=== PATIENT | female | born 1955 | race Caucasian/White ===

== ENCOUNTER → 2016-08-18 | Outpatient (CLI) | payer OTHER ==
[~2016-08-18] MED LIST: ASCA500 PO; CHOL100010 PO; MISCCAP80 PO; MULT-506 PO; ONDA4TAB10 SL
--- NOTE | 2016-08-18 12:45 | MAMMOGRAPHY REPORT ---
BILATERAL DIGITAL SCREENING MAMMOGRAM TOMOSYNTHESIS WITH CAD: 08/18/2016 CLINICAL HISTORY: Routine screening. Patient has no complaints. TECHNIQUE: Breast tomosynthesis in addition to standard 2D mammography was performed. Current study was also evaluated with a Computer Aided Detection (CAD) system. COMPARISON: Comparison is made to exams dated: 02/18/2016 mammogram, 02/18/2016 ultrasound, 08/19/2015 ul trasound, 08/19/2015 mammogram, 08/13/2015 mammogram, and 08/07/2014 mammogram - [facility] enter. BREAST COMPOSITION: There are scattered areas of fibroglandular density in both breasts. FINDINGS: No suspicious masses, calcifications, or areas of architectural distortion are noted in e ither breast. There has been no significant interval change compared to prior exams. Asymmetry in t he right superior posterior breast on the MLO view has the appearance of normal overlapping fibrogla ndular tissue on the tomosynthesis images. IMPRESSION: ACR BI-RADS CATEGORY 2: BENIGN There is no mammographic evidence of malignancy. A 1 year screening mammogram is recommended. The p atient will receive written notification of the results. Approximately 10% of breast cancers are not detected with mammography. A negative mammographic repor t should not delay biopsy if a clinically suggestive mass is present. Macy Arevalo M.D. /:08/18/2016 11:32:21 Counselor Dormitory: Kelly Haider [facility] letter sent: Normal 1/2 BI-RADS Code: ACR BI-RADS Category 2: Benign
== END | disposition home or self-care (01) ==
LOC: C.MAMM 09:16
PROVIDERS: ATTEND Obstetrics & Gynecology
DX: Z12.31 Encounter for screening mammogram for malignant neoplasm of breast (principal)

== ENCOUNTER → 2016-09-18 | Outpatient (CLI) | payer OTHER ==
[2016-09-18 10:01] LABS: BASO % 1.2 %; BASO ABS # 0.04 K/uL (0-0.2); COMPLETE YES; EOS % 1.7 %; LYMPH % 36.7 %; LYMPH ABS # 1.27 K/uL (1.2-3.4); MEAN CELL VOLUME 90.1 fL (80-100); MEAN CORPUSCULAR HEMOGLOBIN 31.3 pg (25-34); MEAN CORPUSCULAR HGB CONC 34.8 g/dl (32-36); MEAN PLATELET VOLUME 9.4 fL (7.4-10.4); MONO % 9.2 %; NEUT % 51.2 %; PLATELET COUNT 252 K/uL (130-400); RED BLOOD COUNT 4.44 M/uL (4.2-5.4); WHITE BLOOD COUNT 3.46 K/uL (4.8-10.8)
[2016-09-18 10:34] LABS: ALT/SGPT 30 U/L (12-78); BLOOD UREA NITROGEN 18 mg/dl (7-18); BUN/CREATININE RATIO 19.8 (10-20); CALCIUM 9.5 mg/dl (8.5-10.1); CARBON DIOXIDE 32 mmol/L (21-32); CHLORIDE 106 mmol/L (98-107); CHOLESTEROL 285 mg/dl (0-200); CREATININE 0.91 mg/dl (0.60-1.20); GLUCOSE 83 mg/dl (70-99); POTASSIUM 4.3 mmol/L (3.5-5.1); SODIUM 142 mmol/L (136-145)
[2016-09-18 10:36] LABS: ALB/GLOB RATIO 1.1 (0.9-2); ALKALINE PHOSPHATASE 81 U/L (45-117); AST/SGOT 21 U/L (15-37); CHOLESTEROL/HDL RATIO 3.2; HDL CHOLESTEROL 88 mg/dl; LDL CHOLESTEROL CALCULATED 172 mg/dl; TRIGLYCERIDES 126 mg/dl (0-150); VERY LOW DENSITY LIPOPROT CALC 25 mg/dl
== END | disposition home or self-care (01) ==
LOC: C.LAB 09:30
PROVIDERS: ATTEND Family Medicine
DX: Z13.0 Encounter for screening for diseases of the blood and blood-forming organs and certain disorders involving the immune mechanism (principal); G43.109 Migraine with aura, not intractable, without status migrainosus; E78.5 Hyperlipidemia, unspecified; Z11.59 Encounter for screening for other viral diseases

== ENCOUNTER → 2017-01-27 | Outpatient (CLI) | payer OTHER ==
[~2017-01-27] MED LIST changes: -ONDA4TAB10 SL
[2017-01-27 20:09] LABS: LYME DISEASE AB IGG NEG (NEG); LYME DISEASE AB IGM NEG (NEG)
== END | disposition home or self-care (01) ==
LOC: C.LAB 17:25
PROVIDERS: ATTEND Physician Assistant
DX: W57.XXXA Bitten or stung by nonvenomous insect and other nonvenomous arthropods, initial encounter (principal)

== ENCOUNTER → 2017-02-04 | Outpatient (CLI) | payer OTHER ==
--- NOTE | 2017-02-05 13:54 | DIAGNOSTIC IMAGING REPORT ---
MRI OF THE RIGHT KNEE WITHOUT CONTRAST CLINICAL HISTORY: Chronic right knee pain. COMPARISON STUDY: None. TECHNIQUE: Utilizing a 1.5 Zandra magnet and dedicated coil, multiplanar, multiecho imaging of the right knee was performed without intravenous or intraarticular contrast. FINDINGS: Alignment of the right knee is anatomic. Extensor mechanism is intact. There is no marrow edema or marrow replacement. A marker was placed on the skin at site of maximal pain which overlies the medial femoral condyle. There is no significant knee joint effusion. Note is made of a 1.3 cm T2 hypointense, T1 hypointense abnormality immediately superior to the posterior cruciate ligament and within the upper aspect of the intercondylar region. This is nonspecific. There is no meniscal tear. The cruciate and collateral ligaments are intact. There is minimal chondrosis within the medial femoral condyle. IMPRESSION: 1. 1.3 cm abnormality immediately superior to the posterior cruciate ligament within the intercondylar region which is likely intra-articular. This is indeterminate and could reflect a loose body or other intraarticular abnormality. 2. Intact cruciate and collateral ligaments. 3. Mild chondrosis of the medial femoral condyle. Electronically signed by: Christ Corona M.D. 02/05/2017 1:52 PM Dictated Date/Time: 02/04/2017 6:42 PM
== END | disposition home or self-care (01) ==
LOC: C.MRI 17:26
PROVIDERS: ATTEND Orthopaedic Surgery
DX: M25.561 Pain in right knee (principal)

== ENCOUNTER → 2017-03-30 | Outpatient (CLI) | payer OTHER ==
[2017-03-30 18:03] LABS: BASO % 0.6 %; BASO ABS # 0.04 K/uL (0-0.2); COMPLETE YES; EOS % 1.3 %; HEMATOCRIT 44.3 % (37-47); IG% 0.2 %; LYMPH % 21.6 %; LYMPH ABS # 1.33 K/uL (1.2-3.4); MEAN CELL VOLUME 95.7 fL (80-100); MEAN CORPUSCULAR HEMOGLOBIN 30.7 pg (25-34); MEAN CORPUSCULAR HGB CONC 32.1 g/dl (32-36); MEAN PLATELET VOLUME 9.9 fL (7.4-10.4); MONO % 7.5 %; NEUT % 68.8 %; PLATELET COUNT 281 K/uL (130-400); RED BLOOD COUNT 4.63 M/uL (4.2-5.4); WHITE BLOOD COUNT 6.16 K/uL (4.8-10.8)
[2017-03-30 18:16] LABS: ALT/SGPT 33 U/L (12-78); AST/SGOT 23 U/L (15-37); BLOOD UREA NITROGEN 15 mg/dl (7-18); BUN/CREATININE RATIO 16.9 (10-20); CALCIUM 10.3 mg/dl (8.5-10.1); CARBON DIOXIDE 32 mmol/L (21-32); CHLORIDE 104 mmol/L (98-107); CREATININE 0.89 mg/dl (0.60-1.20); GLUCOSE 88 mg/dl (70-99); POTASSIUM 4.7 mmol/L (3.5-5.1); SODIUM 138 mmol/L (136-145)
[2017-03-30 18:26] LABS: ALB/GLOB RATIO 1.2 (0.9-2); ALKALINE PHOSPHATASE 78 U/L (45-117)
[2017-03-30 18:29] LABS: URINE APPEARANCE CLEAR (CLEAR); URINE BILIRUBIN NEG (NEG); URINE COLOR YELLOW; URINE EPITHELIAL CELL AUTO 0-5 /lpf (0-5); URINE NITRITE NEG (NEG); URINE SPECIFIC GRAVITY 1.012 (1.000-1.030); UROBILINOGEN NEG (NEG); ZZUR CULT IF INDIC CLEAN CATCH NO
[2017-03-30 18:51] LABS: MANUAL MICROSCOPIC REQUIRED? NO; REVIEW REQ? NO
== END | disposition home or self-care (01) ==
LOC: C.LABBFT 11:37
PROVIDERS: ATTEND Internal Medicine
DX: R10.32 Left lower quadrant pain (principal); R00.2 Palpitations

== ENCOUNTER → 2017-04-05 | Outpatient (CLI) | payer OTHER ==
--- NOTE | 2017-04-20 08:48 | CODING QUERY MEDICAL NECESSITY ---
CQSUPPORTING DIAGNOSIS NEEDED A supporting diagnosis is required for the test/procedure performed on this patient in order for us to be reimbursed by the patient's insurance. Please provide a supporting diagnosis for the following test/procedure listed below next to the test name along with your signature. *If there is no additional diagnosis for this patient that would support the following test/procedure please document that below next to the test/procedure. Test(s)/Procedure(s) that require a supporting diagnosis: DOS 04/05/17 VITAMIN D TEST VITAMIN B12 TEST Provider Signature: Date: Thank you Dariela Barajas Health Information Management Once completed, please kindly fax back to [phone] For questions please call [phone]
== END | disposition home or self-care (01) ==
LOC: C.LAB1850 09:37
PROVIDERS: ATTEND Obstetrics & Gynecology
DX: R53.83 Other fatigue (principal)

== ENCOUNTER → 2017-06-07 | Outpatient (CLI) | payer OTHER ==
--- NOTE | 2017-06-07 15:22 | DIAGNOSTIC IMAGING REPORT ---
CHEST 2 VIEWS ROUTINE CLINICAL HISTORY: R05 [id number] cough COMPARISON STUDY: 09/16/2015 FINDINGS: The bones soft tissues and hemidiaphragms are normal. The cardiomediastinal silhouette is normal. The lungs are clear. The pulmonary vasculature is normal. IMPRESSION: Negative chest. The above report was generated using voice recognition software. It may contain grammatical, syntax or spelling errors. Electronically signed by: Ronal Perla M.D. 06/07/2017 3:21 PM Dictated Date/Time: 06/07/2017 3:21 PM
== END | disposition home or self-care (01) ==
LOC: C.RAD 14:58
PROVIDERS: ATTEND Internal Medicine
DX: R05 Cough (principal)

== ENCOUNTER → 2017-08-22 | Outpatient (CLI) | payer OTHER ==
--- NOTE | 2017-08-22 15:04 | MAMMOGRAPHY REPORT ---
BILATERAL DIGITAL SCREENING MAMMOGRAM TOMOSYNTHESIS WITH CAD: 08/22/2017 CLINICAL HISTORY: Routine screening examination. TECHNIQUE: Breast tomosynthesis in addition to standard 2D mammography was performed. Current study was also evaluated with a Computer Aided Detection (CAD) system. COMPARISON: Comparison is made to exams dated: 08/18/2016 mammogram, 02/18/2016 mammogram, 08/19/2015 mamm ogram, 08/13/2015 mammogram, 08/07/2014 mammogram, and 07/04/2013 mammogram - [facility] ter. BREAST COMPOSITION: There are scattered areas of fibroglandular density in both breasts. FINDINGS: The parenchymal pattern is unchanged. No developing mass, architectural distortion or clus ter of suspicious microcalcifications is seen in either breast. IMPRESSION: ACR BI-RADS CATEGORY 2: BENIGN There is no mammographic evidence of malignancy. A 1 year screening mammogram is recommended. The pa tient will receive written notification of the results. Approximately 10% of breast cancers are not detected with mammography. A negative mammographic report should not delay biopsy if a clinically suggestive mass is present. Prudence Pichardo M.D. ay/:08/22/2017 09:55:54 Punchboard Filling Machine Operator: Kelly HAMLIN(Serge)(Sarah), [facility] letter sent: Normal 1/2 BI-RADS Code: ACR BI-RADS Category 2: Benign
== END | disposition home or self-care (01) ==
LOC: C.MAMM 08:38
PROVIDERS: ATTEND Obstetrics & Gynecology
DX: Z12.31 Encounter for screening mammogram for malignant neoplasm of breast (principal)

== ENCOUNTER → 2017-10-21 | Outpatient (CLI) | payer OTHER ==
--- NOTE | 2017-10-21 08:52 | DIAGNOSTIC IMAGING REPORT ---
THYROID AND NECK ULTRASOUND CLINICAL HISTORY: Right-sided neck pain. COMPARISON STUDY: None. TECHNIQUE: Sonography of the thyroid gland and the right neck at site of maximal pain was performed. FINDINGS: Sonography of the right submandibular gland and adjacent soft tissues demonstrated no abnormality. The right thyroid lobe measures 4.9 x 1.3 x 1.4 cm and the left lobe measures 3.8 x 1.3 x 1.2 cm. The gland appears hypervascular and is mildly heterogeneous. There are no suspicious thyroid nodules. IMPRESSION: 1. No sonographic abnormality within the right neck at site of maximal pain. 2. Heterogeneous thyroid gland which appears hypervascular. This is nonspecific although could reflect thyroiditis. Electronically signed by: Christ Corona M.D. 10/21/2017 8:50 AM Dictated Date/Time: 10/21/2017 8:48 AM
== END | disposition home or self-care (01) ==
LOC: C.ULTR 08:05
PROVIDERS: ATTEND Nurse Practitioner
DX: M54.2 Cervicalgia (principal)

== ENCOUNTER → 2017-10-24 | Outpatient (CLI) | payer OTHER ==
[2017-10-24 16:52] LABS: ALBUMIN 3.9 gm/dl (3.4-5.0); ALT/SGPT 26 U/L (12-78); AST/SGOT 20 U/L (15-37); BLOOD UREA NITROGEN 17 mg/dl (7-18); CALCIUM 9.2 mg/dl (8.5-10.1); CARBON DIOXIDE 29 mmol/L (21-32); CREATININE 1.06 mg/dl (0.60-1.20); GLUCOSE 91 mg/dl (70-99); POTASSIUM 3.9 mmol/L (3.5-5.1); SODIUM 139 mmol/L (136-145)
[2017-10-24 17:02] LABS: ALKALINE PHOSPHATASE 73 U/L (45-117)
== END | disposition home or self-care (01) ==
LOC: C.LABBFT 14:50
PROVIDERS: ATTEND Nurse Practitioner
DX: Z00.00 Encounter for general adult medical examination without abnormal findings (principal); E78.5 Hyperlipidemia, unspecified; E07.9 Disorder of thyroid, unspecified

== ENCOUNTER → 2017-10-27 | Outpatient (CLI) | payer OTHER | END | disposition home or self-care (01) | LOC: C.PAPS 16:17 | PROVIDERS: ATTEND Obstetrics & Gynecology | DX: Z12.4 Encounter for screening for malignant neoplasm of cervix (principal) ==

== ENCOUNTER → 2017-11-22 | Outpatient (CLI) | payer OTHER ==
--- NOTE | 2017-11-22 17:37 | DIAGNOSTIC IMAGING REPORT ---
R VENOUS DOPP LOWER EXT UNILAT CLINICAL HISTORY: M79.604 Right leg painM79.89 Right leg swellingRight leg pain st TECHNIQUE: Venous Doppler COMPARISON STUDY: None FINDINGS: Normal study IMPRESSION: Normal study. No evidence for deep venous thrombosis. Mild soft tissue edema The above report was generated using voice recognition software. It may contain grammatical, syntax or spelling errors. Electronically signed by: Ronal Perla M.D. 11/22/2017 5:36 PM Dictated Date/Time: 11/22/2017 5:35 PM
== END | disposition home or self-care (01) ==
LOC: C.ULTR 17:02
PROVIDERS: ATTEND Internal Medicine
DX: M79.604 Pain in right leg (principal); M79.89 Other specified soft tissue disorders

== ENCOUNTER → 2017-11-25 | Outpatient (CLI) | payer OTHER | END | disposition home or self-care (01) | LOC: C.LAB1850 13:56 | PROVIDERS: ATTEND Physician Assistant | DX: E06.3 Autoimmune thyroiditis (principal) ==

== ENCOUNTER → 2017-12-01 | Outpatient (CLI) | payer OTHER ==
[2017-12-01 12:59] LABS: BASO % 1.5 %; BASO ABS # 0.06 K/uL (0-0.2); EOS % 0.8 %; EOS ABS # 0.03 K/uL (0-0.5); HEMATOCRIT 40.1 % (37-47); HEMOGLOBIN 13.7 g/dL (12.0-16.0); LYMPH % 28.5 %; LYMPH ABS # 1.11 K/uL (1.2-3.4); MEAN CELL VOLUME 92.2 fL (80-100); MEAN CORPUSCULAR HEMOGLOBIN 31.5 pg (25-34); MEAN CORPUSCULAR HGB CONC 34.2 g/dl (32-36); MEAN PLATELET VOLUME 9.6 fL (7.4-10.4); MONO % 8.2 %; MONO ABS # 0.32 K/uL (0.11-0.59); NEUT ABS # 2.37 K/uL (1.4-6.5); PLATELET COUNT 251 K/uL (130-400); RED CELL DISTRIBUTION WIDTH CV 12.8 % (11.5-14.5); RED CELL DISTRIBUTION WIDTH SD 43.7 fL (36.4-46.3); WHITE BLOOD COUNT 3.89 K/uL (4.8-10.8)
== END | disposition home or self-care (01) ==
LOC: C.LABBFT 08:54
PROVIDERS: ATTEND Internal Medicine
DX: Z00.00 Encounter for general adult medical examination without abnormal findings (principal)

== ENCOUNTER 2023-04-30 14:59 | Observation (INO) ==
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
--- NOTE | 2023-04-30 15:43 | XRay Report ---
XR chest 1V not portable CLINICAL HISTORY: Sepsis TECHNIQUE: Single frontal radiograph of the chest was obtained. Comparison: Comparison is made to chest radiograph 04/29/[address] chest 04/29/2023 FINDINGS: No lines and tubes are seen. The cardiomediastinal silhouette is normal. The lungs are clear. Minimal blunting of the left costophrenic angle. IMPRESSION: Minimal blunting of the left costophrenic angle compatible with scarring. ACT 112: Negative or not required by law. Electronically signed by: Bhaskar Davis M.D. 04/30/2023 3:41 PM
[2023-04-30] MEDS ORDERED: VANCOMYCIN CONSULT ACTIVE PRN ×2 (15:56→22:16)
[2023-04-30] MEDS ORDERED: VANCOMYCIN HCL 1,750 MG in SODIUM CHLORIDE 0.9% 500 ML IV ONE (15:56)
[2023-04-30] MEDS ORDERED: cefTRIAXone SODIUM 2,000 MG/50 ML BAG IV STA (15:59)
[2023-04-30] MEDS ORDERED: PANTOprazole 40 MG in SYRINGE 0 ML IV ONE (15:59)
[2023-04-30 16:22] LABS: Hematocrit (blood only) 37.7 % (37.0-47.0); Hemoglobin 12.9 g/dl (12.0-16.0); Mean Corpuscular Hemoglobin 31.6 pg (25.0-34.0); Mean Corpuscular Hgb Conc 34.2 g/dL (32.0-36.0); Mean Corpuscular Volume 92.4 fL (80.0-100.0); Mean Platelet Volume 9.8 fL (9.4-12.4); Platelet Count 241 K/uL (130-400); RDW Coefficient of Variation 12.3 % (11.5-14.5); RDW Standard Deviation 41.8 fL (36.4-46.3); Red Blood Count 4.08 M/uL (4.20-5.40); White Blood Count 11.89 K/ul (4.8-10.8)
[2023-04-30 16:40] LABS: Alanine Aminotransferase 23 U/L (7-52); Albumin Globulin Ratio 1.6 (0.9-2); Albumin Level 4.6 gm/dl (3.4-5.0); Alkaline Phosphatase 77 U/L (34-104); Anion Gap 8 (3-11); Aspartate Aminotransferase 19 U/L (13-39); BUN Creatinine Ratio 17.9 (10-20); Bilirubin,Total 1.1 mg/dl (0.2-1.0); Blood Urea Nitrogen 14 mg/dl (6-23); Carbon Dioxide 26 mmol/L (21-32); Chloride 104 mmol/L (98-107); Est GFR (African American) 91.2 ml/min; Est GFR (Non-African American) 78.7 ml/min; Globulin 2.8 gm/dl (2.5-4.0); Glucose 115 mg/dl (70-99(Fasting)); Magnesium 1.7 mg/dl (1.7-2.4); Potassium 3.7 mmol/L (3.5-5.1); Sodium 138 mmol/L (136-145); Total Protein 7.4 gm/dl (6.0-8.3)
[2023-04-30] MEDS ORDERED: ACETAMINOPHEN 1,000 MG/100 ML VIAL IV STA ×2 (16:40→23:36)
[2023-04-30] MEDS ORDERED: ONDANSETRON INJ 2 MG/ML 2 ML VIAL IV STA ×2 (16:40→19:50)
[2023-04-30 16:42] LABS: Basophils # (auto) 0.03 K/uL (0.00-0.20); Basophils % (auto) 0.3 %; Immature Granulocytes # (auto) 0.04 K/uL (0.01-0.20); Immature Granulocytes % (auto) 0.3 %; Lymphocytes # (auto) 0.44 K/uL (1.20-3.40); Lymphocytes % (auto) 3.7 %; Neutrophils # (auto) 10.78 K/uL (1.40-6.50); Neutrophils % (auto) 90.7 %; RBC Morphology Unremarkable
[2023-04-30 16:49] LABS: Troponin I High Sensitivity 10.2 pg/ml (0-14)
[2023-04-30 16:50] LABS: Partial Thromboplastin Time 27.1 Seconds (21.0-31.0); Prothrombin Time 10.8 Seconds (9.0-12.0)
--- NOTE | 2023-04-30 18:00 | History & Physical Report ---
Date of Service April 30, 2023 Assessment & Plan (1) Abscess: Plan: Breast abscess S/p right lumpectomy 04/08/2023. Surgical site C/C/I without evidence of infection at follow-up 04/19/2023 CT 04/29/2023 which showed a 3.1 x 2.5 and 7.6 x 2.6 fluid collection initially suspicious for seroma/liquefied hematomas; however in the setting of leukocytosis and fever is suspected to be abscess. Surgery consulted, recommended medical admission and IV antibiotics with surgical consultation No history of resistant organisms Patient continued on Rocephin/vancomycin. Leukocytosis, no signs of sepsis on admission Procalcitonin is negative Admitted to med/surg CRP ordered and trended GERD PPI daily History of AIVR/PVCs Last saw cardiology December 2022. Completed a Holter 10/2022 which showed 1 episodes of AIVR lasting 11 beats and 2 episodes of ectopy. Was recommended to continue walking and aerobic activities and was prescribed a as needed beta- jamee . DVT PPx: SCDs Diet; regular CODE: Full Dispo: M/S (2) Status post right breast lumpectomy: (3) LPRD (laryngopharyngeal reflux disease): (4) Ductal carcinoma in situ (DCIS) of right breast: History of Present Illness Primary Care Provider: Zuly Corona MD Harini is a 67-year-old female with a past medical history of GERD, DCIS of the right breast, s/p right breast lumpectomy 04/08/[address] Orellana who presents with fever, leukocytosis, and suspected breast abscess. She did have a CT 04/29/2023 which showed a 3.1 x 2.5 and 7.6 x 2.6 fluid collection initially suspicious for seroma/liquefied hematomas; however in the setting of leukocytosis and fever is suspected to be abscess. Last 4 days has had worseningswelling pain in the R breast and armpit. Last 24 horus swelling is much worse and is not red and tender around the stitches. No chills currently, but has chills last nigth with sweats and fever of 101- 102*F No sternal chest pain. Prio rpain improves slightly with ibuprofen. no shortness of breath no nausea/vomiting Has metoprolol for PVCs, but does not generally take it for symptoms as is not required and notes she is aware they are benign. Denies hx heart of lung disease Takes ppi for gerd which works well for her Medical History: Reviewed Medications: Reviewed Surgical History: Reviewed Family history: Reviewed Allergies: Reviewed Social History: No tobacco/etoh Code Status: FUll Code Allergies Allergy/AdvReac Type Severity Reaction Status Date / Time acetaminophen [From Percocet] Allergy Unknown light Verified 04/30/23 16:28 headed adhesive Allergy Unknown Redness of Verified 04/30/23 16:28 Skin Aminoglycosides Allergy Unknown Unknown Verified 04/30/23 16:28 bacitracin Allergy Unknown LOCALIZED Verified 04/30/23 16:28 SWELLING beclomethasone Allergy Unknown TONGUE Verified 04/30/23 16:28 SWELLING blue dye Allergy Unknown [place] Verified 04/30/23 16:28 Blue FCF - doesn't remember reaction erythrosine sodium Allergy Unknown pt not sure Verified 04/30/23 16:28 hyaluronate sodium, Allergy Unknown rash ? Verified 04/30/23 16:28 stabilized hyaluronic acid Allergy Unknown Rash Verified 04/30/23 16:28 [From Supartz] latex Allergy Unknown RASH, Verified 04/30/23 16:28 ITCHING neomycin Allergy Unknown LOCALIZED Verified 04/30/23 16:28 SWELLING Nitrate Analogues Allergy Unknown Unknown Verified 04/30/23 16:28 nitrofurantoin Allergy Unknown REDNESS Verified 04/30/23 16:28 AND ANAPHYLAXIS oxycodone Allergy Unknown UNKNOWN Verified 04/30/23 16:28 Penicillins Allergy Unknown LIPS Verified 04/30/23 16:28 SWELLING phenylpropanolamine Allergy Unknown Unknown Verified 04/30/23 16:28 polymyxin B Allergy Unknown LOCALIZED Verified 04/30/23 16:28 SWELLING povidone Allergy Unknown WELTS Verified 04/30/23 16:28 povidone-iodine Allergy Unknown welts Verified 04/30/23 16:28 [From Betadine] ranitidine Allergy Unknown pt not Verified 04/30/23 16:28 sure light headed ? not feel good? headache? Sulfa (Sulfonamide Allergy Unknown LIPS Verified 04/30/23 16:28 Antibiotics) SWELLING sulfamethoxazole Allergy Unknown LIPS Verified 04/30/23 16:28 SWELLING trimethoprim Allergy Unknown LIPS Verified 04/30/23 16:28 SWELLING yellow dye Allergy Unknown pt is not Verified 04/30/23 16:28 sure why this is listed, old allergy ? guaifenesin AdvReac Unknown "DOESN'T Verified 04/30/23 16:28 MAKE ME FEEL GOOD" hydrocortisone AdvReac Unknown topical Verified 04/30/23 16:28 caused skin infection phenylephrine AdvReac Unknown "DOESN'T Verified 04/30/23 16:28 MAKE ME FEEL GOOD" Home Medications Medication Instructions Recorded Confirmed Type ascorbic acid (vitamin C) 500 mg 500 mg PO QDD 08/11/18 04/30/23 History tablet (Vitamin C) ibuprofen 200 mg tablet (Advil) 600 mg PO UD PRN Pain 08/11/18 04/30/23 History lactobacillus combination no.4 3 3,000 mmu cells PO QDD 08/11/18 04/30/23 History billion cell capsule (Probiotic) ferrous sulfate 325 mg (65 mg 325 mg PO 3XWK 10/09/20 04/30/23 History iron) tablet cholecalciferol (vitamin D3) 50 50 mcg PO QDD 01/11/22 04/30/23 History mcg (2,000 unit) capsule estradiol 0.01% (0.1 mg/gram) 1 appful vaginal 2XWK #42.5 grams 04/26/22 04/30/23 Rx vaginal cream lorazepam 0.5 mg tablet 0.5 mg PO Q8H PRN anxiety #30 tabs 05/12/22 04/30/23 Rx cyclosporine 0.05 % eye drops in a 1 drp ophthalmic (eye) BID 03/09/23 04/30/23 History dropperette pantoprazole 40 mg tablet,delayed 40 mg PO QAM 03/31/23 04/30/23 History release clindamycin HCl 150 mg capsule 450 mg PO TID 7 days #63 caps 04/29/23 04/30/23 Rx hydrocodone 5 mg-acetaminophen 325 1 tab PO Q6H PRN pain #10 tabs 04/29/23 04/30/23 Rx mg tablet magnesium 250 mg tablet 0 mg PO DAILY 04/30/23 04/30/23 History Past Med/Surg History Medical History Acid reflux Anxiety APC (atrial premature contractions) Bilateral high frequency sensorineural hearing loss Chronic neck pain hx multiple whiplash Chronically dry eyes Dietary iron deficiency without anemia Eczema Family history of reaction to anesthesia son : periodic paralysis syndrome (hypokalemic) Una's thyroiditis Hiatal hernia History of blood clots superficial remote hx/ tx with abx only. History of COVID-02 February 2021 and Jul 2022. Hx of Clostridium difficile infection Hx of tear of meniscus of knee joint Hyperlipidemia Lichen simplex chronicus Migraine hx Osteoporosis Seborrheic keratosis Surgical History H/O colonoscopy H/O hand surgery BILAT > TRIGGER FINGERS History of cataract surgery both History of endometrial ablation History of esophagogastroduodenoscopy (EGD) S/P knee surgery RIGHT > SCOPE x2 Left x 18 Aug 2022 Status post right breast lumpectomy (04/08/23) Right Breast Lumpectomy with Localization using Wire Localization, Right [place] Lymph Node Biopsy(Right) - Naeem Orellana, [place] teeth extracted Family History Mother Breast cancer Cancer Father Hypertension Hearing loss Other No family history of allergies No family history of bleeding disorder Denies family history of Colon cancer Ovarian cancer Prostate cancer Heart disease Myocardial infarction Stroke Asthma Social History Smoking Status: Never smoker Second Hand Exposure: Yes (as a child); Do You Dip or Chew Tobacco: No; Hx Alcohol Use: Yes Alcohol type: wine Hx Substance Use: No Preferred Language: Latvian Communication Ability: Effective Highway Engineer Required: No Beliefs That Will Affect Care: None marital status: Current Living Situation: Spouse current occupational status: retired How many Children do You have: 3 Feels Safe at Home: Yes Dental Care, Regularly: Yes Physical Activity Frequency: 3-4 Times per Week Assistive Devices: Glasses Physical Exam Physical Exam: General: A&Ox3. NAD. Cooperative. HEENT: Atraumatic, normocephalic. Thorax: R lateral breast with surgical site incision with warmth, erythema, and tenderness. No discharge. Marked with surgical pen Pulm: CTAB A&P. -wheezes, -rales, -rhonchi. Symmetrical chest rise. No increased work of breathing. No respiratory distress. Cardiac: RRR, -mrg. Radial pulses intact and symmetrical. Abdominal: Nontender, nondistended, soft. BS present. Results & Data Results & Data Vital Signs (Past 12 Hours) Vital Signs Temp Pulse Resp BP Pulse Ox O2 Del Method 04/30/23 15:58 77 04/30/23 15:10 36.4 C L 84 16 136/67 98 Room Air PG Care Time/CCT Total # of Minutes Spent Total Time Spent with Patient: Total time spent is greater than 50% in coordination of care (as documented) at patient's floor/unit and/or counseling patient: Coding Level of Care Code 69853 INT INP/OBS CARE 2/55MIN Diagnoses Abscess L02.91 Status post right breast lumpectomy Z98.890 LPRD (laryngopharyngeal reflux disease) K21.9 Ductal carcinoma in situ (DCIS) of right breast D05.11
[2023-04-30] MEDS ORDERED: LORazepam 0.5 MG TAB PO PRN (22:16)
[2023-04-30 22:33] LABS: Appearance Urine Cloudy (Clear); Bacteria Urine Automated Negative (Negative); Bilirubin Urine Negative (Negative); Blood Urine Negative (Negative); Color Urine Yellow; Epithelial Cell Urine Auto >30 /lpf (0-5); Glucose Urine UA Negative (Negative); Ketones Urine 3+ (Negative); Leukocyte Esterase Urine Negative (Negative); Nitrite Urine Negative (Negative); Protein Urine 1+ (Negative); RBC Urine Automated 0-4 /hpf (0-4); Urobilinogen Urine Negative (Negative)
[2023-04-30] MEDS ORDERED: ONDANSETRON INJ 2 MG/ML 2 ML VIAL IV PRN (22:57)
[2023-04-30] MEDS ORDERED: ACETAMINOPHEN 325 MG TAB PO PRN (22:57)
[2023-04-30] MEDS: NSS + 20MEQ KCL 20 MEQ/1,000 ML BAG IV SCH (23:21)
[2023-04-30] MEDS ORDERED: Patient's HEIGHT &/or WEIGHT Needed STA (23:34)
[2023-05-01] MEDS ORDERED: VANCOMYCIN HCL 1,000 MG in SODIUM CHLORIDE 0.9% 500 ML IV SCH (03:00)
[2023-05-01] MEDS ORDERED: VANCOMYCIN HCL 750 MG in SODIUM CHLORIDE 0.9% 250 ML IV SCH (04:00)
[2023-05-01] MEDS ORDERED: HYDROmorphone INJ 0.5 MG/0.5 ML SYR IV STA (05:06)
[2023-05-01] MEDS ORDERED: PROCHLORPERAZINE 5 MG in SYRINGE 4 ML IV PRN (05:43)
[2023-05-01 06:01] LABS: Basophils # (auto) 0.05 K/uL (0.00-0.20); Basophils % (auto) 0.5 %; Eosinophils # (auto) 0.04 K/uL (0.00-0.50); Eosinophils % (auto) 0.4 %; Hematocrit (blood only) 31.7 % (37.0-47.0); Hemoglobin 10.8 g/dl (12.0-16.0); Immature Granulocytes # (auto) 0.02 K/uL (0.01-0.20); Immature Granulocytes % (auto) 0.2 %; Lymphocytes # (auto) 0.75 K/uL (1.20-3.40); Lymphocytes % (auto) 7.7 %; Mean Corpuscular Hemoglobin 31.6 pg (25.0-34.0); Mean Corpuscular Hgb Conc 34.1 g/dL (32.0-36.0); Mean Corpuscular Volume 92.7 fL (80.0-100.0); Mean Platelet Volume 9.8 fL (9.4-12.4); Monocytes # (auto) 0.79 K/uL (0.11-0.59); Monocytes % (auto) 8.1 %; Neutrophils # (auto) 8.08 K/uL (1.40-6.50); Neutrophils % (auto) 83.1 %; Platelet Count 204 K/uL (130-400); RDW Coefficient of Variation 12.4 % (11.5-14.5); Red Blood Count 3.42 M/uL (4.20-5.40); White Blood Count 9.73 K/ul (4.8-10.8)
[2023-05-01 06:05] LABS: BUN Creatinine Ratio 17.6 (10-20); C Reactive Protein 4.17 mg/dl (0-0.5); Calcium 8.8 mg/dl (8.6-10.3); Creatinine Clr Calc Pharmacy 76.1 ml/min; Est GFR (African American) 104.9 ml/min; Est GFR (Non-African American) 90.5 ml/min; Potassium 3.7 mmol/L (3.5-5.1)
[2023-05-01] MEDS: MAGNESIUM OXIDE 400 MG TAB PO SCH (08:27)
[2023-05-01] MEDS: PANTOprazole 40 MG TAB PO SCH (08:28)
[2023-05-01] MEDS: NSS + 20MEQ KCL 20 MEQ/1,000 ML BAG IV SCH ×2 (08:28→16:17)
[2023-05-01] MEDS ORDERED: CLINDAMYCIN HCL 150 MG CAP PO SCH (09:00)
--- NOTE | 2023-05-01 09:57 | Surgery Consultation ---
Date of Consultation May 01, 2023 Assessment & Plan (1) Seroma of breast: no fluctuance or drainable abscess Present on Admission?: Yes (2) Cellulitis: c0on't IV abx improving and feels better this AM AF WBC normal this AM Present on Admission?: Yes History of Present Illness Attending Physician: Kervin Diane MD History of Present Illness This is a 67-year-old female with DCIS of the right breast, s/p right breast lumpectomy 04/08/[address] Orellana who presents with fever, leukocytosis and possible breast abscess. She did have a CT 04/29/2023 which showed a 3.1 x 2.5 and 7.6 x 2.6 fluid collection initially suspicious for seroma/liquefied hematomas. She has had 4 days of swelling pain in the R breast and armpit. No chills currently, but a subjective fever of 101-102*F Allergies Allergy/AdvReac Type Severity Reaction Status Date / Time acetaminophen [From Percocet] Allergy Unknown light Verified 04/30/23 16:28 headed adhesive Allergy Unknown Redness of Verified 04/30/23 16:28 Skin Aminoglycosides Allergy Unknown Unknown Verified 04/30/23 16:28 bacitracin Allergy Unknown LOCALIZED Verified 04/30/23 16:28 SWELLING beclomethasone Allergy Unknown TONGUE Verified 04/30/23 16:28 SWELLING blue dye Allergy Unknown [place] Verified 04/30/23 16:28 Blue FCF - doesn't remember reaction erythrosine sodium Allergy Unknown pt not sure Verified 04/30/23 16:28 hyaluronate sodium, Allergy Unknown rash ? Verified 04/30/23 16:28 stabilized hyaluronic acid Allergy Unknown Rash Verified 04/30/23 16:28 [From Supartz] latex Allergy Unknown RASH, Verified 04/30/23 16:28 ITCHING neomycin Allergy Unknown LOCALIZED Verified 04/30/23 16:28 SWELLING Nitrate Analogues Allergy Unknown Unknown Verified 04/30/23 16:28 nitrofurantoin Allergy Unknown REDNESS Verified 04/30/23 16:28 AND ANAPHYLAXIS oxycodone Allergy Unknown UNKNOWN Verified 04/30/23 16:28 Penicillins Allergy Unknown LIPS Verified 04/30/23 16:28 SWELLING phenylpropanolamine Allergy Unknown Unknown Verified 04/30/23 16:28 polymyxin B Allergy Unknown LOCALIZED Verified 04/30/23 16:28 SWELLING povidone Allergy Unknown WELTS Verified 04/30/23 16:28 povidone-iodine Allergy Unknown welts Verified 04/30/23 16:28 [From Betadine] ranitidine Allergy Unknown pt not Verified 04/30/23 16:28 sure light headed ? not feel good? headache? Sulfa (Sulfonamide Allergy Unknown LIPS Verified 04/30/23 16:28 Antibiotics) SWELLING sulfamethoxazole Allergy Unknown LIPS Verified 04/30/23 16:28 SWELLING trimethoprim Allergy Unknown LIPS Verified 04/30/23 16:28 SWELLING yellow dye Allergy Unknown pt is not Verified 04/30/23 16:28 sure why this is listed, old allergy ? guaifenesin AdvReac Unknown "DOESN'T Verified 04/30/23 16:28 MAKE ME FEEL GOOD" hydrocortisone AdvReac Unknown topical Verified 04/30/23 16:28 caused skin infection phenylephrine AdvReac Unknown "DOESN'T Verified 04/30/23 16:28 MAKE ME FEEL GOOD" Home Medications Medication Instructions Recorded Confirmed Type ascorbic acid (vitamin C) 500 mg 500 mg PO QDD 08/11/18 04/30/23 History tablet (Vitamin C) ibuprofen 200 mg tablet (Advil) 600 mg PO UD PRN Pain 08/11/18 04/30/23 History lactobacillus combination no.4 3 3,000 mmu cells PO QDD 08/11/18 04/30/23 History billion cell capsule (Probiotic) ferrous sulfate 325 mg (65 mg 325 mg PO 3XWK 10/09/20 04/30/23 History iron) tablet cholecalciferol (vitamin D3) 50 50 mcg PO QDD 01/11/22 04/30/23 History mcg (2,000 unit) capsule estradiol 0.01% (0.1 mg/gram) 1 appful vaginal 2XWK #42.5 grams 04/26/22 04/30/23 Rx vaginal cream lorazepam 0.5 mg tablet 0.5 mg PO Q8H PRN anxiety #30 tabs 05/12/22 04/30/23 Rx cyclosporine 0.05 % eye drops in a 1 drp ophthalmic (eye) BID 03/09/23 04/30/23 History dropperette pantoprazole 40 mg tablet,delayed 40 mg PO QAM 03/31/23 04/30/23 History release clindamycin HCl 150 mg capsule 450 mg PO TID 7 days #63 caps 04/29/23 04/30/23 Rx hydrocodone 5 mg-acetaminophen 325 1 tab PO Q6H PRN pain #10 tabs 04/29/23 04/30/23 Rx mg tablet magnesium 250 mg tablet 0 mg PO DAILY 04/30/23 04/30/23 History Patient History Medical History Acid reflux Anxiety APC (atrial premature contractions) Bilateral high frequency sensorineural hearing loss Chronic neck pain hx multiple whiplash Chronically dry eyes Dietary iron deficiency without anemia Eczema Family history of reaction to anesthesia son : periodic paralysis syndrome (hypokalemic) Una's thyroiditis Hiatal hernia History of blood clots superficial remote hx/ tx with abx only. History of COVID-02 February 2021 and Jul 2022. Hx of Clostridium difficile infection Hx of tear of meniscus of knee joint Hyperlipidemia Lichen simplex chronicus Migraine hx Osteoporosis Seborrheic keratosis Surgical History H/O colonoscopy H/O hand surgery BILAT > TRIGGER FINGERS History of cataract surgery both History of endometrial ablation History of esophagogastroduodenoscopy (EGD) S/P knee surgery RIGHT > SCOPE x2 Left x 18 Aug 2022 Status post right breast lumpectomy (04/08/23) Right Breast Lumpectomy with Localization using Wire Localization, Right [place] Lymph Node Biopsy(Right) - Naeem Orellana, [place] teeth extracted Family History Mother Breast cancer Cancer Father Hypertension Hearing loss Other No family history of allergies No family history of bleeding disorder Denies family history of Colon cancer Ovarian cancer Prostate cancer Heart disease Myocardial infarction Stroke Asthma Social History Smoking Status: Never smoker Second Hand Exposure: Yes (as a child); Do You Dip or Chew Tobacco: No; Hx Alcohol Use: No Hx Substance Use: No Preferred Language: Georgian Communication Ability: Effective Plug Stitcher Required: No Beliefs That Will Affect Care: None marital status: Current Living Situation: Spouse current occupational status: retired How many Children do You have: 3 Other Information That Helps Us Care for You: No Feels Safe at Home: Yes Safety Concerns: Feels Safe At This Time Dental Care, Regularly: Yes Physical Activity Frequency: 3-4 Times per Week Assistive Devices: None Review of Systems Constitutional: + fever; no chills and no anorexia Eyes: no problem reported Ear, Nose, Mouth, Throat: no problem reported Respiratory: no cough and no dyspnea Cardiovascular: no chest pain Gastrointestinal: no abdominal pain Genitourinary: no dysuria Musculoskeletal: no back pain, no neck pain and no joint pain Integumentary: + rash and + erythema Neurologic: no localized weakness and no generalized weakness Psychiatric: no behavioral changes Endocrine: no fatigue Hematologic / Lymphatic: no easy bleeding and no easy bruising Physical Exam Constitutional: WD/WN, vitals as above Eyes: PERRL, conjunctivae normal, anicteric sclerae ENMT: external ear and nose normal, oropharynx normal Neck: trachea midline Respiratory: normal respiratory effort, lungs clear to auscultation Chest (Breasts): Breast: + breast tenderness Additional Comments: some mild erythema; no fluctuance Gastrointestinal (Abdomen): normal bowel sounds, soft, nontender, no hepatosplenomegaly Musculoskeletal: Head/Neck/Chest: normocephalic and head atraumatic Skin: no rashes, warm and dry Results & Data Vital Signs (Past 12 Hours) Vital Signs Temp Pulse Resp BP Pulse Ox O2 Del Method 05/01/23 06:34 36.4 C L 72 16 114/68 96 Room Air 04/30/23 23:15 Room Air 04/30/23 23:05 36.8 C 81 16 145/78 H 98 Room Air Diagnostic Findings CT SCAN OF THE CHEST WITH IV CONTRAST CLINICAL HISTORY: Right sided chest pain and swelling. Recent lumpectomy with lymph node dissection. COMPARISON STUDY: Chest x-ray dated 04/29/2023. TECHNIQUE: Following the IV administration of 93 cc of Optiray 320, CT scan of the thorax was performed from the thoracic inlet to the upper abdomen. Images are reviewed in the axial, sagittal, and coronal planes. IV contrast was administered without complication. A dose lowering technique was utilized adhering to the principles of ALARA. CT DOSE: 320.11 mGy.cm FINDINGS: Thyroid: Imaged portions of the thyroid gland are normal in size and attenuation. Thoracic aorta: The thoracic aorta is normal in caliber and demonstrates standard 3-vessel arch anatomy. No dissection is seen. Pulmonary vasculature: The pulmonary trunk is normal in caliber. There are no filling defects identified in the central pulmonary vessels to indicate pulmonary embolus. Note that this examination was not protocoled for evaluation of the pulmonary arteries. Heart: The heart is mildly enlarged and without pericardial effusion. Lungs and pleural spaces: There are small pleural effusions, right larger than left with dependent atelectasis. The lungs are otherwise clear. The trachea and central airways are patent. Mediastinum: There is no mediastinal lymphadenopathy. [place]: Clear. Axillae: There is no axillary lymphadenopathy. Upper abdomen: A 1.8 cm cyst is seen in the upper pole of left kidney. Partially visualized upper abdominal viscera is otherwise within normal limits. Skeletal structures: The skeletal structures are osteopenic. No lytic or blastic bony lesions are seen. Soft tissues: A small simple appearing fluid collection in the right axilla on image #73 measures 3.1 x 2.5 cm. A similar-appearing fluid collection is seen in the right breast on image #17. This measures 7.6 x 2.6 cm. Mild body wall edema seen on the right. IMPRESSION: 1. There is mild body wall edema on the right with simple appearing fluid collections in the right breast and right axilla as above. These likely represent seromas/liquefied hematomas given the history of recent surgery. The sterility of this fluid cannot be assessed by imaging and clinical correlation will be required. 2. Cardiomegaly with small pleural effusions. 3. No airspace consolidation is seen typical for pneumonia. 4. Additional findings as above.
--- NOTE | 2023-05-01 13:50 | Pharmacy Report ---
Pharmacy PK ABX Note - Date of Service May 01, 2023 - Assessment and Plan Assessment 67 year old F receiving CEFTRIAXONE/VANCOMYCIN for treatment of breast abscess. Pertinent microbiologic data includes: blood cultures pending. General surgery consulted Plan Vancomycin * Loading dose: 1750 mg IV x 1 * Maintenance dose: 1000 mg IV every 12 hours * Regimen is predicted to achieve target AUC/JAMEL of 400-600 mg/L.hr * Random level ordered for 05/03 @ 1000 Pharmacy will continue to follow and will adjust dose/frequency as necessary. Thank you. Pharmacy has transitioned to AUC monitoring for vancomycin. AUC/JAMEL is the preferred PK/PD target and is associated with decreased risk of nephrotoxicity compared to traditional trough targets.
[2023-05-01] MEDS ORDERED: HYDROCODONE/ACETAMOPHEN 5/325MG TAB PO PRN (15:50)
[2023-05-01] MEDS: ACETAMINOPHEN 325 MG TAB PO SCH ×2 (15:56→22:36)
[2023-05-01] MEDS ORDERED: POLYETHYLENE (MIRALAX) 17 GM PACK PO PRN (16:06)
--- NOTE | 2023-05-01 16:09 | Hospitalist Progress Note ---
Date of Service May 01, 2023 Assessment & Plan (1) Abscess of breast, right: Plan: modest clinical improvement overnight with IV rocephin + IV vancomycin WBC improved nausea is better erythema on R breast is decreased still with considerable pain over the inner aspect of right medial upper arm - suspect compression of axillary structures from the 2 fluid collections causing local mass effect & pain? try toradol 15mg IV q6h prn schedule tylenol 650mg TID norco 5's q4h prn appreciate gen surg consultation & assistance (2) Status post right breast lumpectomy: Plan: 04/08/23 - Right Breast Lumpectomy with Localization usingWire Localization and Right [place] Lymph Node Biopsy - Dr Orellana (3) Ductal carcinoma in situ (DCIS) of right breast: Plan: on R breast Bx 03/02/23 s/p right breast lumpectomy 04/08/23 all lymph nodes from R axillary region were negative for hayden spread of cancer (4) Acid reflux: Plan: cont PPI (5) Hx of Clostridium difficile infection: Plan: add probiotics yogurt 1-2x's/day (6) DVT prophylaxis: Plan: add heparin 5000 TID in light of recent surgery, etc Plan ?gallop on cardiac exam - re-examine tomorrow; if still present then echo no evidence of CHF, however, on physical exam family updated at bedside Admission and Anticipated Discharge Date Admission Date: April 30, 2023 Subjective patient with less nausea today no emesis able to tolerate liquids although her intake is low main complaint is that of right axillary pain extending onto the proximal right medial arm very sensitive to touch this area is more painful than the breast itself had c diff about 5 years ago asks for probiotics no BM in 2 days, however had fever at home - none since admission , son at bedside during the visit pt reports she had L meniscal knee surgery a few months ago Review of Systems Review of Systems: gen - no further fevers; eating fair; liquid intake fair at best cv - no central chest pain pulm - no dyspnea GI - no pain Physical Exam Physical Exam: gen - NAD, nontoxic, pleasant mouth - MMM neck - prominent carotid pulsation but no JVD heart - either split s1 or s4/s1 (gallop), s2 normal; RRR, no murmur lungs - modestly decreased BS bases otherwise CTA b/l; no rales abd - soft NT ND BS+ ext - no edema, pulses 2+ b/l chest - chaperoned by nursing - demarkation lines are present; these were placed on R breast by ER provider; mild erythema has retreated from the demarkation lines; steri strips present right upper outer quadrant; no drainage. steri- strips present over lymph node dissection site in the axillae; again no drainage. there is no palpable cord, swelling, or redness over the area of pain in the upper medial arm. musculo - left lower leg is larger than right leg Results & Data Results & Data Vital Signs (Past 12 Hours) Vital Signs Temp Pulse Resp BP Pulse Ox O2 Del Method 05/01/23 15:16 36.9 C 62 16 122/71 96 Room Air 05/01/23 06:34 36.4 C L 72 16 114/68 96 Room Air Laboratory Results Laboratory Results - last 24 hr 04/30/23 04/30/23 04/30/23 15:52 15:52 15:52 WBC 11.89 H RBC 4.08 L Hgb 12.9 Hct 37.7 MCV 92.4 MCH 31.6 MCHC 34.2 RDW Std Deviation 41.8 RDW Coeff of [place] 12.3 Plt Count 241 MPV 9.8 Immature Gran % (Auto) 0.3 Neut % (Auto) 90.7 Lymph % (Auto) 3.7 [place] % (Auto) 5.0 Eos % (Auto) 0.0 Baso % (Auto) 0.3 Neut # (Auto) 10.78 H Lymph # (Auto) 0.44 L [place] # (Auto) 0.60 H Eos # (Auto) 0.00 Baso # (Auto) 0.03 Immature Gran # (Auto) 0.04 RBC Morphology Unremarkable PT 10.8 INR 1.0 APTT 27.1 PTT Ratio 1.0 Sodium 138 Potassium 3.7 Chloride 104 Carbon Dioxide 26 Anion Gap 8 BUN 14 Creatinine 0.78 Est Cr Clr Drug Dosing Not Reportable Est GFR ( Amer) 91.2 Est GFR (Non-Af Amer) 78.7 BUN/Creatinine Ratio 17.9 Glucose 115 H Calcium 10.0 Magnesium 1.7 Total Bilirubin 1.1 H D AST 19 ALT 23 Alkaline Phosphatase 77 Troponin I High Sens 10.2 C-Reactive Protein 3.80 H Total Protein 7.4 Albumin 4.6 Globulin 2.8 Albumin/Globulin Ratio 1.6 Procalcitonin Urine Color Urine Appearance Urine pH Ur Specific [place] Urine Protein Urine Glucose (UA) Urine Ketones Urine Blood Urine Nitrite Urine Bilirubin Urine Urobilinogen Ur Leukocyte Esterase Urine WBC (Auto) Urine RBC (Auto) U Hyaline Cast (Auto) U Epithel Cells (Auto) Urine Bacteria (Auto) 04/30/23 04/30/23 05/01/23 15:52 22:20 05:26 WBC 9.73 RBC 3.42 L Hgb 10.8 L Hct 31.7 L MCV 92.7 MCH 31.6 MCHC 34.1 RDW Std Deviation 42.0 RDW Coeff of [place] 12.4 Plt Count 204 MPV 9.8 Immature Gran % (Auto) 0.2 Neut % (Auto) 83.1 Lymph % (Auto) 7.7 [place] % (Auto) 8.1 Eos % (Auto) 0.4 Baso % (Auto) 0.5 Neut # (Auto) 8.08 H Lymph # (Auto) 0.75 L [place] # (Auto) 0.79 H Eos # (Auto) 0.04 Baso # (Auto) 0.05 Immature Gran # (Auto) 0.02 RBC Morphology PT INR APTT PTT Ratio Sodium Potassium Chloride Carbon Dioxide Anion Gap BUN Creatinine Est Cr Clr Drug Dosing Est GFR ( Amer) Est GFR (Non-Af Amer) BUN/Creatinine Ratio Glucose Calcium Magnesium Total Bilirubin AST ALT Alkaline Phosphatase Troponin I High Sens C-Reactive Protein Total Protein Albumin Globulin Albumin/Globulin Ratio Procalcitonin < 0.05 Urine Color Yellow Urine Appearance Cloudy A Urine pH 6.0 Ur Specific [place] 1.030 Urine Protein 1+ H Urine Glucose (UA) Negative Urine Ketones 3+ H Urine Blood Negative Urine Nitrite Negative Urine Bilirubin Negative Urine Urobilinogen Negative Ur Leukocyte Esterase Negative Urine WBC (Auto) 1-5 Urine RBC (Auto) 0-4 U Hyaline Cast (Auto) 1-5 U Epithel Cells (Auto) >30 H Urine Bacteria (Auto) Negative 05/01/23 05:26 WBC RBC Hgb Hct MCV MCH MCHC RDW Std Deviation RDW Coeff of [place] Plt Count MPV Immature Gran % (Auto) Neut % (Auto) Lymph % (Auto) [place] % (Auto) Eos % (Auto) Baso % (Auto) Neut # (Auto) Lymph # (Auto) [place] # (Auto) Eos # (Auto) Baso # (Auto) Immature Gran # (Auto) RBC Morphology PT INR APTT PTT Ratio Sodium 140 Potassium 3.7 Chloride 109 H Carbon Dioxide 24 Anion Gap 7 BUN 12 Creatinine 0.68 Est Cr Clr Drug Dosing 76.1 Est GFR ( Amer) 104.9 Est GFR (Non-Af Amer) 90.5 BUN/Creatinine Ratio 17.6 Glucose 89 Calcium 8.8 Magnesium Total Bilirubin AST ALT Alkaline Phosphatase Troponin I High Sens C-Reactive Protein 4.17 H Total Protein Albumin Globulin Albumin/Globulin Ratio Procalcitonin Urine Color Urine Appearance Urine pH Ur Specific [place] Urine Protein Urine Glucose (UA) Urine Ketones Urine Blood Urine Nitrite Urine Bilirubin Urine Urobilinogen Ur Leukocyte Esterase Urine WBC (Auto) Urine RBC (Auto) U Hyaline Cast (Auto) U Epithel Cells (Auto) Urine Bacteria (Auto) Diagnostic Findings blood cx's negative to date PG Care Time/CCT Total # of Minutes Spent Total Time Spent with Patient: Total time spent is greater than 50% in coordination of care (as documented) at patient's floor/unit and/or counseling patient: Coding Level of Care Code 47342 SUB INP/OBS CARE 2/35MIN Diagnoses Abscess of breast, right N61.1 Status post right breast lumpectomy Z98.890 Ductal carcinoma in situ (DCIS) of right breast D05.11 Acid reflux K21.9 Hx of Clostridium difficile infection Z86.19 DVT prophylaxis Z29.9
[2023-05-01] MEDS: VANCOMYCIN HCL 1,000 MG in SODIUM CHLORIDE 0.9% 250 ML IV SCH (16:18)
[2023-05-01] MEDS ORDERED: ADVANCED PROBIOTIC 1250 MG CAPSULE PO SCH (16:30)
[2023-05-01] MEDS: SACCHAROMYCES BOULARDII 250 MG CAP PO SCH (17:09)
[2023-05-01] MEDS: ASCORBIC ACID 500 MG TAB PO SCH (17:09)
[2023-05-01] MEDS: cefTRIAXone SODIUM 2,000 MG in DEXTROSE 5 % MINI-B 50 ML IV SCH (17:50)
[2023-05-01] MEDS ORDERED: NON-FORMULARY PATIENT'S OWN MED SCH (21:00)
[2023-05-01] MEDS: cycloSPORINE (RESTASIS) OP SCH (21:36)
[2023-05-01] MEDS: HEPARIN SOD 5,000 UNIT/0.5 ML VIAL SQ SCH (21:37)
[2023-05-01] MEDS: KETOROLAC TROMETHAMINE 15 MG/ML VIAL IV PRN (22:35)
[2023-05-02] MEDS: VANCOMYCIN HCL 1,000 MG in SODIUM CHLORIDE 0.9% 250 ML IV SCH ×2 (05:39→16:16)
[2023-05-02] MEDS: NSS + 20MEQ KCL 20 MEQ/1,000 ML BAG IV SCH (05:40)
[2023-05-02] MEDS: KETOROLAC TROMETHAMINE 15 MG/ML VIAL IV PRN ×2 (05:46→14:30)
[2023-05-02] MEDS: HEPARIN SOD 5,000 UNIT/0.5 ML VIAL SQ SCH ×3 (05:46→21:44)
[2023-05-02 06:27] LABS: Basophils # (auto) 0.05 K/uL (0.00-0.20); Basophils % (auto) 0.9 %; Eosinophils # (auto) 0.13 K/uL (0.00-0.50); Eosinophils % (auto) 2.3 %; Hematocrit (blood only) 30.5 % (37.0-47.0); Hemoglobin 10.1 g/dl (12.0-16.0); Immature Granulocytes # (auto) 0.02 K/uL (0.01-0.20); Immature Granulocytes % (auto) 0.4 %; Lymphocytes # (auto) 1.13 K/uL (1.20-3.40); Lymphocytes % (auto) 20.1 %; Mean Corpuscular Hemoglobin 31.3 pg (25.0-34.0); Mean Corpuscular Hgb Conc 33.1 g/dL (32.0-36.0); Mean Corpuscular Volume 94.4 fL (80.0-100.0); Mean Platelet Volume 10.1 fL (9.4-12.4); Monocytes # (auto) 0.47 K/uL (0.11-0.59); Monocytes % (auto) 8.4 %; Neutrophils # (auto) 3.82 K/uL (1.40-6.50); Neutrophils % (auto) 67.9 %; Platelet Count 182 K/uL (130-400); RDW Coefficient of Variation 12.4 % (11.5-14.5); RDW Standard Deviation 43.4 fL (36.4-46.3); Red Blood Count 3.23 M/uL (4.20-5.40); White Blood Count 5.62 K/ul (4.8-10.8)
[2023-05-02 06:41] LABS: BUN Creatinine Ratio 21.4 (10-20); Calcium 8.6 mg/dl (8.6-10.3); Creatinine Clr Calc Pharmacy 73.9 ml/min; Est GFR (African American) 103.9 ml/min; Est GFR (Non-African American) 89.7 ml/min; Potassium 4.2 mmol/L (3.5-5.1)
[2023-05-02] MEDS: SACCHAROMYCES BOULARDII 250 MG CAP PO SCH (07:32)
[2023-05-02] MEDS: PANTOprazole 40 MG TAB PO SCH (07:35)
[2023-05-02] MEDS: MAGNESIUM OXIDE 400 MG TAB PO SCH (09:00)
[2023-05-02] MEDS: SENNA 8.6 MG TAB PO SCH (09:00)
[2023-05-02] MEDS: ACETAMINOPHEN 325 MG TAB PO SCH ×3 (09:01→21:43)
[2023-05-02] MEDS: cycloSPORINE (RESTASIS) OP SCH ×2 (09:01→21:44)
--- NOTE | 2023-05-02 10:28 | Surgery Progress Note ---
Date of Service May 02, 2023 Assessment & Plan (1) Abscess of breast, right: Plan: Patient is post operative right breast lumpectomy sentinel node BX on 04/08/[address] Orellana. Patient reports she was seen in the ER Last Tuesday for post operative pain that began to worsen, was given prescription for pain medication and PO anabiotics and was d/c home. While at home Tuesday the pain began to worsen and patient developed N/V and fever. She returned to the ER and was admitted. She has been getting IV antbx since Tuesday night, and has not had any fevers while in house. No drainage from surgical site, reports warmth, redness, and pain that extends to her underarm and right shoulder area. Right post operative breast lumpectomy / sentinel node: erythema, warmth, extending laterally, areas still have remaining steri strips, erythema does not extend past current [place] markings. VSS , WBC 5.6 Patient can receive her next dose of IV antbx D/c on PO antibiotic and f/u in office Tuesday with Dr. Orellana Admission and Anticipated Discharge Date Admission Date: April 30, 2023 Subjective Patient reports she was seen in the ER Last Tuesday for post operative pain that began to worsen, was given prescription for pain medication and PO anabiotics and was d/c home. While at home Tuesday the pain begain to worsen and patient developed N/V and fever. She returned to the ER and was admitted. She has been getting IV antbx since Tuesday night, and has not had any fevers while in house. No drainage from surgical site, reports warmth, redness, and pain that extends to her underarm and shoulder area. Review of Systems Constitutional: no fever, no chills and no sweats since admission Integumentary: + breast skin changes Physical Exam Physical Exam: awake alert pleasant Constitutional: cooperative and comfortable; no acute distress Respiratory: normal respiratory effort and able to speak in complete sentences; no respiratory distress Cardiovascular: Rate/Rhythm: regular rate Chest (Breasts): Additional Comments: Right post operative breast lumpectomy / sentinel node: erythema, warmth, extend ing laterally, areas still have remaining steri strips Results & Data Vital Signs (Past 12 Hours) Vital Signs Temp Pulse Resp BP Pulse Ox O2 Del Method 05/02/23 07:12 97.9 F 55 L 16 128/74 94 Room Air 05/01/23 22:35 Room Air PG Care Time/CCT Total # of Minutes Spent Total Time Spent with Patient: Total time spent is greater than 50% in coordination of care (as documented) at patient's floor/unit and/or counseling patient: Coding Level of Care Code 01724 Post Operative Follow-Up Diagnoses Abscess of breast, right N61.1
[2023-05-02] MEDS: ASCORBIC ACID 500 MG TAB PO SCH (16:16)
[2023-05-02] MEDS: cefTRIAXone SODIUM 2,000 MG in DEXTROSE 5 % MINI-B 50 ML IV SCH (19:31)
--- NOTE | 2023-05-02 19:40 | XCELERA ---
[id number] \\[id number]
--- NOTE | 2023-05-02 20:34 | Hospitalist Progress Note ---
Date of Service May 02, 2023 Assessment & Plan (1) Abscess of breast, right: Plan: cont to improved with IV rocephin + IV vancomycin WBC normalized nausea resolved erythema on R breast decreased still with considerable pain over the inner aspect of right medial upper arm - suspect compression of axillary structures from the 2 fluid collections causing local mass effect & pain doppler of RUE was NEGATIVE for DVT cont toradol 15mg IV q6h prn cont scheduled tylenol 650mg TID cont norco 5's q4h prn cont cool packs appreciate gen surg consultation & assistance spoke with Dr Orellana - he will see patient in am keep overnight; cont IV abx at discharge would try to mimic current IV abx thus will use -- cefdinir + doxycycline; would Rx 2-3 weeks consider repeat u/s in 2-3 weeks to ensure improvement (2) Status post right breast lumpectomy: Plan: 04/08/23 - Right Breast Lumpectomy with Localization usingWire Localization and Right [place] Lymph Node Biopsy - Dr Orellana (3) Ductal carcinoma in situ (DCIS) of right breast: Plan: on R breast Bx 03/02/23 s/p right breast lumpectomy 04/08/23 all lymph nodes from R axillary region were negative for hayden spread of cancer (4) Acid reflux: Plan: cont PPI (5) Hx of Clostridium difficile infection: Plan: probiotics yogurt 1-2x's/day (6) DVT prophylaxis: Plan: heparin 5000 TID in light of recent surgery, etc (7) Mid-systolic click: Plan: echo performed today MVP? other? await echo saw ERMA Perez - [facility] [place] Cardiology - earlier this year due to palpitations 3 day Holter 10/2022 was essentially normal (rare ectopy, and 1 episode of brief asymptomatic idioventricular rhythm) Admission and Anticipated Discharge Date Admission Date: April 30, 2023 Subjective patient reports ongoing pain in the R axillary region extending to the proximal inner upper R arm this is her biggest complaint R breast pain is improved she reports the redness continues to retreat from the demarkation lines that were drawn on the breast in the ER no diarrhea fortunately eating fair Review of Systems Review of Systems: gen - no fevers or chills cv - no chest pain or orthopnea pulm - no cough or dyspnea GI - no vomiting or nausea Physical Exam Physical Exam: gen - NAD, nontoxic, pleasant mouth - MMM neck - no JVD heart - s1, mid systolic click?? at the apex, s2 normal; RRR, no murmur lungs - CTA b/l; no rales abd - soft NT ND BS+ ext - no edema, pulses 2+ b/l musculo - left lower leg is larger than right leg - chronic per patient right axillary region - no erythema, mild swelling; right upper medial arm - no swelling or gross abnormality breast exam - deferred today Results & Data Results & Data Vital Signs (Past 12 Hours) Vital Signs Temp Pulse Resp BP Pulse Ox O2 Del Method 05/02/23 20:16 36.9 C 60 18 122/73 98 Room Air Laboratory Results Laboratory Results - last 24 hr 05/02/23 05/02/23 05:45 05:45 WBC 5.62 RBC 3.23 L Hgb 10.1 L Hct 30.5 L MCV 94.4 MCH 31.3 MCHC 33.1 RDW Std Deviation 43.4 RDW Coeff of [place] 12.4 Plt Count 182 MPV 10.1 Immature Gran % (Auto) 0.4 Neut % (Auto) 67.9 Lymph % (Auto) 20.1 [place] % (Auto) 8.4 Eos % (Auto) 2.3 Baso % (Auto) 0.9 Neut # (Auto) 3.82 Lymph # (Auto) 1.13 L [place] # (Auto) 0.47 Eos # (Auto) 0.13 Baso # (Auto) 0.05 Immature Gran # (Auto) 0.02 Sodium 140 Potassium 4.2 Chloride 111 H Carbon Dioxide 25 Anion Gap 4 BUN 15 Creatinine 0.70 Est Cr Clr Drug Dosing 73.9 Est GFR ( Amer) 103.9 Est GFR (Non-Af Amer) 89.7 BUN/Creatinine Ratio 21.4 H Glucose 96 Calcium 8.6 Diagnostic Findings blood cx's negative PG Care Time/CCT Total # of Minutes Spent Total Time Spent with Patient: Total time spent is greater than 50% in coordination of care (as documented) at patient's floor/unit and/or counseling patient: Coding Level of Care Code 15211 SUB INP/OBS CARE 2/35MIN Diagnoses Abscess of breast, right N61.1 Status post right breast lumpectomy Z98.890 Ductal carcinoma in situ (DCIS) of right breast D05.11 Acid reflux K21.9 Hx of Clostridium difficile infection Z86.19 DVT prophylaxis Z29.9 Mid-systolic click R01.2
[2023-05-03] MEDS ORDERED: VANCOMYCIN LEVEL ONE (03:30)
[2023-05-03] MEDS: VANCOMYCIN HCL 1,000 MG in SODIUM CHLORIDE 0.9% 250 ML IV SCH (04:09)
[2023-05-03] MEDS: KETOROLAC TROMETHAMINE 15 MG/ML VIAL IV PRN ×2 (04:12→12:25)
[2023-05-03 04:25] LABS: BUN Creatinine Ratio 27.2 (10-20); Calcium 8.6 mg/dl (8.6-10.3); Creatinine Clr Calc Pharmacy 63.9 ml/min; Est GFR (African American) 87.1 ml/min; Est GFR (Non-African American) 75.2 ml/min; Potassium 3.9 mmol/L (3.5-5.1)
[2023-05-03 04:29] LABS: Basophils # (auto) 0.05 K/uL (0.00-0.20); Basophils % (auto) 1.1 %; Eosinophils # (auto) 0.16 K/uL (0.00-0.50); Eosinophils % (auto) 3.6 %; Hematocrit (blood only) 29.4 % (37.0-47.0); Hemoglobin 10.3 g/dl (12.0-16.0); Immature Granulocytes # (auto) 0.01 K/uL (0.01-0.20); Immature Granulocytes % (auto) 0.2 %; Lymphocytes # (auto) 1.24 K/uL (1.20-3.40); Lymphocytes % (auto) 28.1 %; Mean Corpuscular Volume 91.3 fL (80.0-100.0); Mean Platelet Volume 10.3 fL (9.4-12.4); Monocytes # (auto) 0.42 K/uL (0.11-0.59); Monocytes % (auto) 9.5 %; Neutrophils # (auto) 2.53 K/uL (1.40-6.50); Neutrophils % (auto) 57.5 %; Platelet Count 211 K/uL (130-400); RDW Coefficient of Variation 12.4 % (11.5-14.5); RDW Standard Deviation 41.6 fL (36.4-46.3); Red Blood Count 3.22 M/uL (4.20-5.40); White Blood Count 4.41 K/ul (4.8-10.8)
[2023-05-03] MEDS: HEPARIN SOD 5,000 UNIT/0.5 ML VIAL SQ SCH (05:23)
--- NOTE | 2023-05-03 06:25 | Electrocardiogram Report ---
Test Reason : Blood Pressure : / mmHG Vent. Rate : 085 BPM Atrial Rate : 085 BPM P-R Int : 140 ms QRS Dur : 086 ms QT Int : 362 ms P-R-T Axes : 064 -38 065 degrees QTc Int : 430 ms Normal sinus rhythm Left axis deviation Incomplete right bundle branch block Nonspecific ST and T wave abnormality Abnormal ECG When compared with ECG of 25-OCT-2022 11:19, No significant change was found Confirmed by Constantin Johnson ([id number]) on 05/03/2023 6:25:01 AM Referred By: Confirmed By:Constantin Johnson
--- NOTE | 2023-05-03 07:41 | Pharmacy Report ---
Pharmacy PK ABX Note - Date of Service May 03, 2023 - Assessment and Plan Assessment 67 year old F receiving CEFTRIAXONE/VANCOMYCIN for treatment of breast abscess. Pertinent microbiologic data includes: blood cultures currently NGTD (from 04/30/23). General surgery has been consulted and states that erythema has not extended beyond markings. Patient afebrile and leukocytosis has resolved (12 --> 4.4). Plan Vancomycin * Maintenance dose: 1000 mg IV every 12 hours. Trough this AM was 12.5 mg/L. * Regimen is predicted to achieve target AUC/JAMEL of 400-600 mg/L.hr * Trough to be ordered if continued > 7 days Pharmacy will continue to follow and will adjust dose/frequency as necessary. Thank you. Pharmacy has transitioned to AUC monitoring for vancomycin. AUC/JAMEL is the preferred PK/PD target and is associated with decreased risk of nephrotoxicity compared to traditional trough targets.
--- NOTE | 2023-05-03 08:44 | Surgery Progress Note ---
Date of Service May 03, 2023 Assessment & Plan (1) Status post right breast lumpectomy: Plan: Clinically improving. I think she is okay for discharge. She will follow-up with me on Tuesday. Discharged home on antibiotics. She still has pain medication from the original surgery which she can use if need be I can refill it on Tuesday. Admission and Anticipated Discharge Date Admission Date: April 30, 2023 Subjective Patient seen. Continues to improve. She now has any nausea. She still does have pain but it is improving. Physical Exam Physical Exam: Alert no acute distress The erythema is markedly decreased. There is no drainage. She has no lymphedema and good range of motion Results & Data Vital Signs (Past 12 Hours) Vital Signs Temp Pulse Resp BP Pulse Ox O2 Del Method 05/03/23 08:04 36.6 C 76 16 149/82 H 96 Room Air PG Care Time/CCT Total # of Minutes Spent Total Time Spent with Patient: Total time spent is greater than 50% in coordination of care (as documented) at patient's floor/unit and/or counseling patient: Coding Level of Care Code 76021 Post Operative Follow-Up Diagnoses Status post right breast lumpectomy Z98.890
[2023-05-03] MEDS: MAGNESIUM OXIDE 400 MG TAB PO SCH (09:21)
[2023-05-03] MEDS: PANTOprazole 40 MG TAB PO SCH (09:21)
[2023-05-03] MEDS: SACCHAROMYCES BOULARDII 250 MG CAP PO SCH (09:21)
[2023-05-03] MEDS: ACETAMINOPHEN 325 MG TAB PO SCH (09:22)
[2023-05-03] MEDS: cycloSPORINE (RESTASIS) OP SCH (09:22)
[2023-05-03] MEDS: SENNA 8.6 MG TAB PO SCH (09:22)
--- NOTE | 2023-05-03 09:48 | Discharge Summary ---
Date of Service May 03, 2023 Admission HPI Per Admitting Provider Harini is a 67-year-old female with a past medical history of GERD, DCIS of the right breast, s/p right breast lumpectomy 04/08/[address] Orellana who presents with fever, leukocytosis, and suspected breast abscess. She did have a CT 04/29/2023 which showed a 3.1 x 2.5 and 7.6 x 2.6 fluid collection initially suspicious for seroma/liquefied hematomas; however in the setting of leukocytosis and fever is suspected to be abscess. Last 4 days has had worseningswelling pain in the R breast and armpit. Last 24 horus swelling is much worse and is not red and tender around the stitches. No chills currently, but has chills last nigth with sweats and fever of 101- 102*F No sternal chest pain. Prio rpain improves slightly with ibuprofen. no shortness of breath no nausea/vomiting Has metoprolol for PVCs, but does not generally take it for symptoms as is not required and notes she is aware they are benign. Denies hx heart of lung disease Takes ppi for gerd which works well for her Medical History: Reviewed Medications: Reviewed Surgical History: Reviewed Family history: Reviewed Allergies: Reviewed Social History: No tobacco/etoh Code Status: FUll Code Admission Exam Per Admitting Provider General: A&Ox3. NAD. Cooperative. HEENT: Atraumatic, normocephalic. Thorax: R lateral breast with surgical site incision with warmth, erythema, and tenderness. No discharge. Marked with surgical pen Pulm: CTAB A&P. -wheezes, -rales, -rhonchi. Symmetrical chest rise. No increased work of breathing. No respiratory distress. Cardiac: RRR, -mrg. Radial pulses intact and symmetrical. Abdominal: Nontender, nondistended, soft. BS present. Principal Diagnosis 1. Right breast abscess versus infected seroma, improving with antibiotics. 2. Ductal carcinoma in situ of the right breast status post recent right breast lumpectomy Discharge Exam general: Awake, conversant Heart: S1, S2/regular rate and rhythm, no murmur rubs or gallops Lungs: Clear to auscultation bilaterally. Normal effort Abdomen: Soft/nontender/nondistended. No hepatosplenomegaly Extremities: No clubbing/cyanosis. No edema Behavior: Appropriate, cooperative Discharge Data Allergies Allergy/AdvReac Type Severity Reaction Status Date / Time acetaminophen [From Percocet] Allergy Unknown light Verified 04/30/23 16:28 headed adhesive Allergy Unknown Redness of Verified 04/30/23 16:28 Skin Aminoglycosides Allergy Unknown Unknown Verified 04/30/23 16:28 bacitracin Allergy Unknown LOCALIZED Verified 04/30/23 16:28 SWELLING beclomethasone Allergy Unknown TONGUE Verified 04/30/23 16:28 SWELLING blue dye Allergy Unknown [place] Verified 04/30/23 16:28 Blue FCF - doesn't remember reaction erythrosine sodium Allergy Unknown pt not sure Verified 04/30/23 16:28 hyaluronate sodium, Allergy Unknown rash ? Verified 04/30/23 16:28 stabilized hyaluronic acid Allergy Unknown Rash Verified 04/30/23 16:28 [From Supartz] latex Allergy Unknown RASH, Verified 04/30/23 16:28 ITCHING neomycin Allergy Unknown LOCALIZED Verified 04/30/23 16:28 SWELLING Nitrate Analogues Allergy Unknown Unknown Verified 04/30/23 16:28 nitrofurantoin Allergy Unknown REDNESS Verified 04/30/23 16:28 AND ANAPHYLAXIS oxycodone Allergy Unknown UNKNOWN Verified 04/30/23 16:28 Penicillins Allergy Unknown LIPS Verified 04/30/23 16:28 SWELLING phenylpropanolamine Allergy Unknown Unknown Verified 04/30/23 16:28 polymyxin B Allergy Unknown LOCALIZED Verified 04/30/23 16:28 SWELLING povidone Allergy Unknown WELTS Verified 04/30/23 16:28 povidone-iodine Allergy Unknown welts Verified 04/30/23 16:28 [From Betadine] ranitidine Allergy Unknown pt not Verified 04/30/23 16:28 sure light headed ? not feel good? headache? Sulfa (Sulfonamide Allergy Unknown LIPS Verified 04/30/23 16:28 Antibiotics) SWELLING sulfamethoxazole Allergy Unknown LIPS Verified 04/30/23 16:28 SWELLING trimethoprim Allergy Unknown LIPS Verified 04/30/23 16:28 SWELLING yellow dye Allergy Unknown pt is not Verified 04/30/23 16:28 sure why this is listed, old allergy ? guaifenesin AdvReac Unknown "DOESN'T Verified 04/30/23 16:28 MAKE ME FEEL GOOD" hydrocortisone AdvReac Unknown topical Verified 04/30/23 16:28 caused skin infection phenylephrine AdvReac Unknown "DOESN'T Verified 04/30/23 16:28 MAKE ME FEEL GOOD" Consultations 04/30/23 17:39 ED Decision to Admit Stat 04/30/23 18:10 Consult General Surgery Routine Hospital Course (1) Abscess of breast, right: postoperative seroma on the right breast cont to improved with IV rocephin + IV vancomycin WBC normalized nausea resolved erythema on R breast decreased still with considerable pain over the inner aspect of right medial upper arm - suspect compression of axillary structures from the 2 fluid collections causing local mass effect & pain doppler of RUE was NEGATIVE for DVT General surgery cleared the patient for discharge. Switch IV antibiotics to p.o. Cefdinir and doxycycline for 2 weeks at discharge would try to mimic current IV abx thus will use -- cefdinir + doxycycline; would Rx 2-3 weeks consider repeat u/s in 2-3 weeks to ensure improvement (2) Status post right breast lumpectomy: 04/08/23 - Right Breast Lumpectomy with Localization usingWire Localization and Right [place] Lymph Node Biopsy - Dr Orellana (3) Ductal carcinoma in situ (DCIS) of right breast: on R breast Bx 03/02/23 s/p right breast lumpectomy 04/08/23 all lymph nodes from R axillary region were negative for [place] spread of cancer (4) Acid reflux: cont PPI (5) Hx of Clostridium difficile infection: probiotics yogurt 1-2x's/day (6) DVT prophylaxis: heparin 5000 TID during hospital stay (7) Mid-systolic click: echo performed today [facility] - earlier this year due to palpitations 3 day Holter 10/2022 was essentially normal (rare ectopy, and 1 episode of brief asymptomatic idioventricular rhythm) Plan discharge today Total Time Total Time Spent Total Time Spent (In Minutes): 35 Discharge Plan Discharge Items Patient Disposition: Home - Self-Care Reason For Visit: BREAST ABSCESS Discharge Diagnosis: 1. Right breast abscess versus infected seroma, improving with antibiotics. 2. 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 Advised to follow-up with PCP in 1 week 2. Follow-up with general surgery in 5 days Pending Studies at Discharge: No Stand-Alone Forms: My [facility] Medications and DC Order Prescriptions: New clindamycin HCl 150 mg Capsule 450 mg PO TID 14 Days Qty: 126 0RF cefdinir 300 mg capsule 300 mg PO BID 14 Days Qty: 28 0RF Continued estradiol 0.01 % (0.1 mg/gram) cream 1 appful VAGINAL 2XWK Qty: 42.5 3RF Patient Comments: sun and end of week lorazepam 0.5 mg tablet 0.5 mg PO Q8H PRN (Reason: anxiety) Qty: 30 0RF cyclosporine 0.05 % dropperette 1 drp ophthalmic (eye) BID Patient Comments: both eyes cholecalciferol (vitamin D3) 50 mcg (2,000 unit) capsule 50 mcg PO QDD ascorbic acid (vitamin C) [Vitamin C] 500 mg Tablet 500 mg PO QDD ibuprofen [Advil] 200 mg Tablet 600 mg PO UD PRN (Reason: Pain) Probiotic 3 billion cell Capsule 3,000 mmu cells PO QDD Patient Comments: hx cdiff hydrocodone-acetaminophen 5-325 mg tablet 1 tab PO Q6H PRN (Reason: pain) Qty: 10 0RF Rx Instructions: NEW, DID NOT START magnesium 250 mg Tablet 0 mg PO DAILY ferrous sulfate 325 mg (65 mg iron) Tablet 325 mg PO 3XWK Patient Comments: mon, wed and fri pantoprazole 40 mg tablet,delayed release (DR/EC) 40 mg PO QAM Patient Comments: only use once a day now/use twice if needed Rx Instructions: TAKE ONE TABLET BY MOUTH 2 TIMES A DAY Discontinued clindamycin HCl 150 mg capsule 450 mg PO TID 7 Days Qty: 63 0RF Rx Instructions: NEW, DID NOT START YET. Discharge Orders: Discharge Order (Routine); Ordered 05/03/23 Ordered By: Neela Diaz Admission Data Admit Date/Time: 10/14/23 19:39 Attending Provider: Neela Diaz Admit Provider: Alcon Black Primary Care Provider: Zuly Corona Other Providers: Alcon Black ; Alejandro Rios Other Interventions: Discharge Summary Assessment (RN) Last Done: 05/03/23 10:50 Coding Level of Care Code 12984 INP/OBS DISCH >30 MIN Diagnoses Abscess of breast, right N61.1 Status post right breast lumpectomy Z98.890 Ductal carcinoma in situ (DCIS) of right breast D05.11 Acid reflux K21.9 Hx of Clostridium difficile infection Z86.19 DVT prophylaxis Z29.9 Mid-systolic click R01.2
== END 2023-05-03 13:49 | disposition home or self-care (01) | DRG 920 ==
LOC: ED 14:59 → INTOOBSV 19:39 → 3E 19:39 → SUATTDRO 19:39 → 3E 22:05

== ENCOUNTER 2023-10-20 07:30 | Observation (INO) ==
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
[2023-10-20] MEDS: LACTATED RINGER'S 1,000 ML IV SCH ×2 (08:00→13:28)
--- NOTE | 2023-10-20 08:10 | History & Physical Bridge Note ---
Date of Service October 20, 2023 History & Physical Bridge Note I have examined the patient, reviewed the History & Physical and in the interval since the performance of the History & Physical I have noted the following changes of clinical significance: no changes noted
[2023-10-20] MEDS ORDERED: ONDANSETRON INJ 2 MG/ML 2 ML VIAL IV PRN ×2 (08:31→09:22)
[2023-10-20] MEDS ORDERED: ePHEDrine sulfate 50 MG/ML AMP IV PRN (08:31)
[2023-10-20] MEDS ORDERED: ATROPINE SULFATE 0.1 MG/ML 10ML SYR IV PRN (08:31)
[2023-10-20] MEDS ORDERED: MIDAZOLAM HCL 1 MG/ML 2ML VIAL ONE (08:39)
[2023-10-20] MEDS ORDERED: fentaNYL citrate PF 100 MCG/2 ML VIAL ONE (08:39)
[2023-10-20] MEDS ORDERED: BUPIVACAINE 0.5 % 5 MG/1 ML PF 10ML VIAL ONE (08:43)
[2023-10-20] MEDS: CLINDA 900 MG **Premixed Bag IV SCH (09:06)
[2023-10-20] MEDS ORDERED: traMADol HCL 50 MG TABLET PO PRN ×3 (09:22→12:50)
[2023-10-20] MEDS ORDERED: ACETAMINOPHEN 1,000 MG/100 ML VIAL IV PRN (09:22)
[2023-10-20] MEDS ORDERED: IBUPROFEN 600 MG TAB PO PRN (09:29)
[2023-10-20] MEDS: TISSEEL FIBRIN SEALANT 10ML TOP ONE (10:50)
[2023-10-20] MEDS ORDERED: PROPOFOL IV EMULSION 10 MG/ML 20 ML VIAL IV ONE (10:53)
[2023-10-20] MEDS ORDERED: ONDANSETRON INJ 2 MG/ML 2 ML VIAL ONE (10:53)
[2023-10-20] MEDS ORDERED: DEXAMETHASONE SOD INJ 4 MG/ML VIAL ONE (10:53)
[2023-10-20] MEDS ORDERED: LIDOCAINE 2% 2 ML VIAL/AMP(20MG/ML) INFIL ONE (10:53)
[2023-10-20] MEDS: ARISTA ABSORBABLE HEMOSTAT 3GM NAE ONE (11:07)
[2023-10-20] MEDS: BUPIVACAINE/EPINEPHRINE 0.5% MPF 1:200,000 30 ML VIAL ONE (11:10)
[2023-10-20] MEDS: BUPIVACAINE LIPOSOME 1.3% 266 MG/20 ML VIAL ONE (11:24)
--- NOTE | 2023-10-20 11:38 | Post Operative Brief Note ---
PG Immediate Post Op with CF Date of Surgery October 20, 2023 Pre & Post Diagnosis Operation Date: 10/20/23 09:05 Pre-Op Diagnosis: Intraductal carcinoma of right breast Post-Op Diagnosis: Intraductal carcinoma of right breast I identified the patient and participated in the time-out.: Yes Procedure Operation Date: 10/20/23 09:05 Actual Procedures p Right Breast Mastectomy(Right) - Naeem Orellana DO s and Right Axillary Dissection(Right) - Naeem Orellana DO Surgeon Naeem Orellana DO Kids Activities Coach antolin Alexander Estimated Blood Loss 15 Findings Consistent with Post-Op Diagnosis Specimens Specimen Description: A. Right breast and axillary tissue (2 long stitches medial, 2 short stitches superior, 1 long stitch lateral). Drains Christiano-Yang Drain
[2023-10-20] MEDS: fentaNYL citrate PF 100 MCG/2 ML VIAL IV PRN (11:57)
--- NOTE | 2023-10-20 12:15 | Anesthesiology Progress Note ---
Date of Service October 20, 2023 Anesthesia Post Procedure Vital Signs Vital Signs: Temp Pulse Pulse Resp BP Pulse Ox O2 Del Method 10/20/23 12:05 78 14 119/74 88 L Room Air 10/20/23 11:55 78 15 121/54 L 99 Room Air 10/20/23 11:45 77 13 114/64 98 Oxymask 10/20/23 11:38 36.2 C L 92 H 14 115/72 99 Oxymask 10/20/23 07:55 36.7 C 80 20 130/72 98 Room Air O2 Flow Rate 10/20/23 12:05 10/20/23 11:55 10/20/23 11:45 2 10/20/23 11:38 4 10/20/23 07:55 Pain Intensity Right Breast: Pain Intensity: 2 Transfer of Care Handoff Completed per policy Notes Mental Status: alert / awake / arousable and participated in evaluation Patient Amnestic to Procedure: Yes Nausea / Vomiting: adequately controlled Pain: adequately controlled Airway Patency, RR, SpO2: stable & adequate BP & HR: stable & adequate Hydration State: stable & adequate Anesthetic Complications: no major complications apparent and Pt Satisfied with anesthetic care
[2023-10-20] MEDS ORDERED: LORazepam 0.5 MG TAB PO PRN (12:50)
[2023-10-20] MEDS ORDERED: MoRPHine SULFATE 2 MG/ML CARP IV PRN (12:50)
[2023-10-20] MEDS ORDERED: MoRPHine SULFATE 4 MG/ML 1 ML CARP\\VIAL IV PRN (12:50)
[2023-10-20] MEDS ORDERED: diazePAM 5 MG TABLET PO PRN (12:50)
[2023-10-20] MEDS ORDERED: ARTIFICIAL TEARS OP PRN (12:58)
--- NOTE | 2023-10-20 12:59 | Operative Report ---
PG Post Operative Report Pre & Post Diagnosis Operation Date: 10/20/23 09:05 Pre-Op Diagnosis: Intraductal carcinoma of right breast Post-Op Diagnosis: Intraductal carcinoma of right breast I identified the patient and participated in the time-out.: Yes Procedure Operation Date: 10/20/23 09:05 Actual Procedures p Right Breast Mastectomy(Right) - Naeem Orellana DO s and Right Axillary Dissection(Right) - Naeem Orellana DO Surgeon Naeem Orellana DO Ink Grinder antolin Alexander Estimated Blood Loss 15 Findings Consistent with Post-Op Diagnosis Specimens right breast and right axillary lymph nodes Description of Procedure After informed consent was obtained the patient was taken to the operating room and placed in supine position. After successful placement of a laryngeal mask airway the entire chest upper arm and neck were all sterilely prepped and draped in usual fashion. Anesthesia did place a pectoral block prior to prepping. I began by making elliptical incision around the breast starting medially and coming around to the right axilla. I used traction countertraction and cautery to start creating skin flaps in 360 degrees. Small bleeding points were controlled either using cautery or clamp and tied with 3-0 catgut. I created the flaps superiorly up to the clavicle and inferiorly to the inframammary fold. Once the flaps were all created I began taking the breast tissue off the underlying pectoralis fascia using again traction and cautery. We did not remove any fascia. As it came laterally I continued the dissection into the axilla. There was some scarring in the axilla presumably from her prior sentinel lymph node biopsy as well as radiation. This did make the dissection somewhat tedious. I was able to identify the axillary vein superiorly and continued the dissection laterally to the latissimus dorsi and medially to the chest wall. There were no pathologically palpable or visible lymph nodes. Presumably from the prior sentinel lymph node biopsy where we had obtained 6 lymph nodes there did not appear to be that many obtainable lymph nodes. Once the axillary dissection was complete I was able to remove the specimen in 1 piece. It was marked such that 2 short stitches were superior 1 long stitch was lateral and 2 long stitches were medial. It was sent to pathology. The raw surfaces were all thoroughly irrigated. There was adequate hemostasis. I sprayed Tisseel sealant on all the raw surfaces as well as Brynn powder to help prevent seroma and hematoma formation. A separate stab wound inferior to the incision was made and a 15 round drain was placed into the axilla. It was secured to the skin using 2-0 nylon. The wound was then closed in multiple layers using 0 Vicryl for deep layers 2-0 Vicryl for mid layers and 4 Monocryl in running subcuticular fashion for the skin. 20 cc of Exparel was also injected around the surgical site to assist with postoperative analgesia. Benzoin Steri-Strips gauze and a surgical bra were placed. The patient was awakened extubated and transferred recovery in stable condition. My physician social human services assistants was present for the entire case and was instrumental in providing exposure, assisting with the dissection, wound closure and dressing placement. I attest to the content of the Intraoperative Record and any orders documented therein. Any exceptions are noted below.
[2023-10-20] MEDS: SODIUM CHLORIDE 0.9% 1,000 ML IV SCH (13:04)
[2023-10-20] MEDS: ACETAMINOPHEN 1,000 MG/100 ML VIAL IV SCH (13:27)
[2023-10-20] MEDS ORDERED: Nursing to Pharmacy Communication SCH (18:00)
[2023-10-20] MEDS: cycloSPORINE (RESTASIS) (POM) OP SCH (20:12)
[2023-10-21] MEDS: PANTOprazole 40 MG TAB PO SCH (07:24)
[2023-10-21 07:46] LABS: Calcium 9.1 mg/dl (8.6-10.3); Potassium 4.2 mmol/L (3.5-5.1)
[2023-10-21 07:52] LABS: BUN Creatinine Ratio 16.1 (10-20); Creatinine Clr Calc Pharmacy 54.2 ml/min; Est GFR (African American) 79.9 ml/min; Est GFR (Non-African American) 68.9 ml/min
[2023-10-21 09:56] LABS: Basophils # (auto) 0.04 K/uL (0.00-0.20); Basophils % (auto) 0.6 %; Eosinophils # (auto) 0.02 K/uL (0.00-0.50); Eosinophils % (auto) 0.3 %; Hematocrit (blood only) 41.2 % (37.0-47.0); Hemoglobin 14.1 g/dl (12.0-16.0); Immature Granulocytes # (auto) 0.01 K/uL (0.01-0.20); Immature Granulocytes % (auto) 0.1 %; Lymphocytes % (auto) 21.3 %; Mean Corpuscular Hemoglobin 31.8 pg (25.0-34.0); Mean Corpuscular Hgb Conc 34.2 g/dL (32.0-36.0); Mean Platelet Volume 9.5 fL (9.4-12.4); Monocytes # (auto) 0.49 K/uL (0.11-0.59); Neutrophils # (auto) 4.98 K/uL (1.40-6.50); Neutrophils % (auto) 70.7 %; Platelet Count 248 K/uL (130-400); RDW Coefficient of Variation 12.7 % (11.5-14.5); RDW Standard Deviation 43.5 fL (36.4-46.3); Red Blood Count 4.43 M/uL (4.20-5.40); White Blood Count 7.04 K/ul (4.8-10.8)
--- NOTE | 2023-10-21 11:42 | Surgery Progress Note ---
Date of Service October 21, 2023 Assessment & Plan (1) Breast cancer, right breast: Plan: doing well ok for d/c instructions given. Admission and Anticipated Discharge Date Admission Date: October 20, 2023 Subjective pt seen. doing great. no pain. ranjan diet Physical Exam Physical Exam: looks well dressings c/d/i NATHEN with small amount serous. Results & Data Vital Signs (Past 12 Hours) Vital Signs Temp Pulse Resp BP Pulse Ox O2 Del Method 10/21/23 07:49 36.6 C 67 16 109/68 97 Room Air 10/21/23 03:43 36.7 C 70 16 102/65 97 Room Air 10/21/23 00:33 36.8 C 61 16 107/69 96 Room Air PG Care Time/CCT Total # of Minutes Spent Total Time Spent with Patient: Total time spent is greater than 50% in coordination of care (as documented) at patient's floor/unit and/or counseling patient: Coding Level of Care Code 70211 Post Operative Follow-Up Diagnoses Breast cancer, right breast C50.911
--- NOTE | 2023-10-24 08:02 | Discharge Summary ---
Date of Service October 21, 2023 Principal Diagnosis right breast cancer s/p R mastectomy s/p R axillary lymph node dissection Discharge Exam awake/alert, no distress Respiratory normal respiratory effort Chest (Breasts) Additional Comments: NATHEN drain serosang surgical bra in place. dressings c/d/i Discharge Data Allergies Allergy/AdvReac Type Severity Reaction Status Date / Time adhesive Allergy Unknown Redness of Verified 10/20/23 08:02 Skin Aminoglycosides Allergy Unknown Unknown Verified 10/20/23 08:02 bacitracin Allergy Unknown LOCALIZED Verified 10/20/23 08:02 SWELLING beclomethasone Allergy Unknown TONGUE Verified 10/20/23 08:02 SWELLING blue dye Allergy Unknown Velva Verified 10/20/23 08:02 Blue FCF - doesn't remember reaction erythrosine sodium Allergy Unknown pt not sure Verified 10/20/23 08:02 hyaluronate sodium, Allergy Unknown rash ? Verified 10/20/23 08:02 stabilized hyaluronic acid Allergy Unknown Rash Verified 10/20/23 08:02 [From Supartz] latex Allergy Unknown RASH, Verified 10/20/23 08:02 ITCHING neomycin Allergy Unknown LOCALIZED Verified 10/20/23 08:02 SWELLING nickel Allergy Unknown Rash Verified 10/20/23 08:02 Nitrate Analogues Allergy Unknown Unknown Verified 10/20/23 08:02 nitrofurantoin Allergy Unknown REDNESS Verified 10/20/23 08:02 AND ANAPHYLAXIS oxycodone Allergy Unknown UNKNOWN Verified 10/20/23 08:02 Penicillins Allergy Unknown LIPS Verified 10/20/23 08:02 SWELLING phenylpropanolamine Allergy Unknown Unknown Verified 10/20/23 08:02 polymyxin B Allergy Unknown LOCALIZED Verified 10/20/23 08:02 SWELLING povidone Allergy Unknown WELTS Verified 10/20/23 08:02 povidone-iodine Allergy Unknown welts Verified 10/20/23 08:02 [From Betadine] ranitidine Allergy Unknown pt not Verified 10/20/23 08:02 sure light headed ? not feel good? headache? Sulfa (Sulfonamide Allergy Unknown LIPS Verified 10/20/23 08:02 Antibiotics) SWELLING sulfamethoxazole Allergy Unknown LIPS Verified 10/20/23 08:02 SWELLING trimethoprim Allergy Unknown LIPS Verified 10/20/23 08:02 SWELLING yellow dye Allergy Unknown pt is not Verified 10/20/23 08:02 sure why this is listed, old allergy ? guaifenesin AdvReac Unknown "DOESN'T Verified 10/20/23 08:02 MAKE ME FEEL GOOD" hydrocortisone AdvReac Unknown topical Verified 10/20/23 08:02 caused skin infection phenylephrine AdvReac Unknown "DOESN'T Verified 10/20/23 08:02 MAKE ME FEEL GOOD" Procedures Performed Operation Date: 10/20/23 09:05 Actual Procedures p Right Breast Mastectomy(Right) - Naeem Orellana DO s and Right Axillary Dissection(Right) - Naeem Orellana DO Ordered Studies 10/20/23 05:00 US - OR guided needle placemen Routine 10/20/23 08:42 US - OR guided needle placemen Routine Hospital Course (1) Intraductal carcinoma of right breast: This is a 67yF with a PMH of right breast cancer who presents to the [facility] on 10/20/23 for an electively scheduled R breast mastectomy and axillary lymph node dissection with Dr. Orellana. The patient tolerated the procedure well, see op note for full details. The patient recovered in the PACU and was trasnferred to the med/surg floor in stable condition for overnight observation. Post operatively diet was advanced as tolerated, she remained with a NATHEN drain in place, and pain controlled with prn pain meds. On POD#1 the patient was doing well. Pain controlled. Incisions c/d/i and she was wearing a surgical bra. NATHEN drain remained serosang and education was provided regarding drain care at home. She was deemed stable for discharge to home, dispo instructions reviewed. Requested patient follow up in the office within 1 weeks time. Total Time Total Time Spent Total Time Spent (In Minutes): 10 Discharge Plan Discharge Items Patient Disposition: Home - Self-Care Reason For Visit: Right Breast Intraductal Carcinoma Discharge Diagnosis: right breast mastectomy and axillary lymph node dissection Activity: Per Instructions section Lifting: No more than 5 pounds Bathing Comment: keep incisions clean and dry until your followup. may sponge bath otherwise Exercise/Sports: Wait until after follow-up appointment Driving/Machine Use: no driving until cleared by the surgeon Non-emergency contact: Surgeon Call non-emergency contact if: you have any medication questions, your pain is not controlled, you have a fever, your temperature is above 101.5, your wound has increased redness, your wound has increased drainage and your wound pain has increased Follow-up/Referrals: Zuly Corona MD [Primary Care Provider] - Naeem Orellana DO [Surgeon] - 10/28/23 9:45 am (please call to schedule follow up in the office within 2 weeks ) Diet: Regular Addtl Attending Provider Instructions: You have small white bandages on underneath that are over your incisions. These are called steri strips. They will tend to fall off on their own within 7-10 days. Please care for your surgical drain as you have been educated prior to discharge from the hospital. Empty drain 2-3x/daily and record output, bring a log with you to the office. otherwise keep the drain to bulb suction. Once drain output is less than 30cc for two days in a row you may call the office to consider removal Because of your allergies no narcotics were prescribed. you should use ice packs to the area and ibuprofen 600mg to 800 mg every 6-8 hours as needed for discomfort. You may also take Tylenol OTC. Continue to wear surgical bra or a compressive bra until your follow up. May place dry gauze dressing between the incision and bra for comfort Pending Studies at Discharge: Yes Studies:: surgical pathology Stand-Alone Forms: My [facility] Medications and DC Order Prescriptions: New tramadol 50 mg tablet 50 mg PO Q8H Qty: 20 0RF Continued estradiol 0.01 % (0.1 mg/gram) cream 1 appful VAGINAL 2XWK Qty: 42.5 3RF Patient Comments: sun and end of week lorazepam 0.5 mg tablet 0.5 mg PO Q8H PRN (Reason: anxiety) Qty: 30 0RF cyclosporine 0.05 % dropperette 1 drp ophthalmic (eye) BID Patient Comments: both eyes cholecalciferol (vitamin D3) 50 mcg (2,000 unit) capsule 50 mcg PO QPM ferrous fumarate 55 mg (18 mg iron) tablet extended release 18 mg PO QPM multivitamin Tablet 1 tab PO QPM ibuprofen [Advil] 200 mg Tablet 600 mg PO UD PRN (Reason: Pain) Probiotic 3 billion cell Capsule 3,000 mmu cells PO QPM Patient Comments: hx cdiff magnesium 250 mg Tablet 0 mg PO HS ascorbic acid (vitamin C) 1,500 mg Tablet 750 tab PO QPM pantoprazole [Protonix] 20 mg tablet,delayed release (DR/EC) 20 mg PO QAM Discharge Orders: Discharge Order (Routine); Ordered 10/21/23 Ordered By: Dave Artis/Other Patient Handouts: Mastectomy: Healing at Home, Christiano Yang Drain Tube Dc, Post Op Drain Emptying Steps Admission Data Admit Date/Time: 10/20/23 11:40 Attending Provider: Naeem Orellana Admit Provider: Naeem Orellana Primary Care Provider: Zuly Corona Other Interventions: Discharge Summary Assessment (RN) Last Done: 10/21/23 09:46 Coding Level of Care Code 41703 IN/OBS DISCH 30 MIN/LESS Diagnoses Intraductal carcinoma of right breast D05.11
== END 2023-10-21 13:10 | disposition home or self-care (01) ==
LOC: ASU 07:30 → 3W 07:30
DX: K21.9 Gastro-esophageal reflux disease without esophagitis; E78.5 Hyperlipidemia, unspecified; Z91.040 Latex allergy status; Z88.0 Allergy status to penicillin; D05.11 Intraductal carcinoma in situ of right breast; Z88.2 Allergy status to sulfonamides; Z88.1 Allergy status to other antibiotic agents; Z79.899 Other long term (current) drug therapy; Z88.5 Allergy status to narcotic agent; Z88.8 Allergy status to other drugs, medicaments and biological substances